=== PATIENT | male | born 1950 | race Caucasian/White ===

== ENCOUNTER 2017-07-30 03:57 | Emergency (ER) | payer MEDICARE, SELFPAY ==
[~2017-07-30] VITALS: Ht 170.2 cm; Wt 104.3 kg
[~2017-07-30 03:57] MED LIST: ACET325 PO; AMARYL; AMLO10 PO; AMOCLA875 PO; ASPI81CH PO; ASPI81EC; ATOR40TA PO; Augmentin 875-1 EACH; BYETTA; CEPH500 PO; CIPR500 PO; CLOP75 PO; Cilostazol50 MG PO; GLIP5 PO; GLUCOPHAGE; HYDACE5 PO; HYDR1TAB94 PO; INS70/30I; INS70/30I SC; INS70/30PN SC; INSR10I SC; LEVO750 PO; LISHYD1012 PO; LISI10 PO; LISI20 PO; LOTREL; METF500 PO; METF500C; METF500C PO; OXYACE5T PO; PANT40 PO; SACC250C PO; SULTRIDS; SULTRIDS PO; ZESTORETIC 20-251 EA PO; [UNRECOGNIZED DRUG - REMARK]
[2017-07-30 04:45] LABS: BASOPHILS ABSOLUTE AUTO 0.04 K/mm3 (0.00-0.23); BASOPHILS PERCENT AUTO 0 % (0-2); EOSINOPHILS ABSOLUTE AUTO 0.03 K/mm3 (0.00-0.68); EOSINOPHILS PERCENT AUTO 0 % (0-6); Hematocrit 26.4 % (37.0-53.0); Hemoglobin 8.7 g/dL (13.5-17.5); IMMATURE GRAN ABSOLUTE AUTO 0.04 K/mm3 (0.00-0.10); IMMATURE GRAN PERCENT AUTO 0 % (0-1); LYMPHOCYTES PERCENT AUTO 9 % (21-46); MONOCYTES ABSOLUTE AUTO 0.97 K/mm3 (0.16-1.47); MONOCYTES PERCENT AUTO 7 % (4-13); Mean Corpuscular HGB 29.4 pg (26.0-34.0); Mean Corpuscular Volume 89 fL (80-100); Mean Platelet Volume 9.1 fL (9.1-12.4); NEUTROPHILS ABSOLUTE AUTO 12.59 K/mm3 (1.96-9.15); NEUTROPHILS PERCENT AUTO 84 % (41-73); Platelet Count 469 K/mm3 (150-400); RDW Coefficient Variation 14.4 % (11.7-14.2); Red Blood Cell Count 2.96 M/mm3 (4.30-5.90); White Blood Cell Count 14.97 K/mm3 (4.00-11.30)
[2017-07-30 04:56] LABS: Alanine Aminotransfer (ALT/SGP 18 U/L (12-78); Albumin, Blood 2.8 g/dL (3.4-5.0); Albumin/Globulin Ratio 0.6 (0.8-1.8); Alk Phos 56 U/L (50-136); Anion Gap 8 mmol/L (6-16); Aspartate Aminotrans (AST/SGOT 14 U/L (12-37); Bilirubin, Total 0.7 mg/dL (0.1-1.0); Blood Urea Nitrogen 23 mg/dL (8-24); Bun/Creatinine Ratio 18.5 (12.0-20.0); CO2, Blood 26 mmol/L (21-32); Chloride, Blood 99 mmol/L (98-108); Creatinine, Blood 1.24 mg/dL (0.60-1.20); Globulin, Blood 4.6 g/dL (2.2-4.0); Glomerular Filtration Rate >60 (60-); Glucose, Blood 133 mg/dL (70-99); Sodium, Blood 133 mmol/L (136-145); Total Protein, Blood 7.4 g/dL (6.4-8.2)
[2017-07-30 07:16] LABS: Influenza A Negative (NEGATIVE); Influenza B Negative (NEGATIVE)
[2018-01-26] MEDS ORDERED: ASCO500 PO (12:54)
[2018-01-26] MEDS ORDERED: HYDR10 PO (12:55)
[2018-01-26] MEDS ORDERED: Ferrous Sulfat325 M2 PO (12:55)
[2018-01-26] MEDS ORDERED: INSULANPEN SC (12:56)
[2018-01-26] MEDS ORDERED: Humalog100 UNIT/3 (12:57)
[2018-01-26] MEDS ORDERED: LINE600 PO (12:57)
== END 2017-07-30 10:13 ==
LOC: ER 03:57
PROVIDERS: Emergency Medicine
DX: K92.2 Gastrointestinal hemorrhage, unspecified (principal); E11.9 Type 2 diabetes mellitus without complications; Z79.02 Long term (current) use of antithrombotics/antiplatelets; Z79.899 Other long term (current) drug therapy; Z79.4 Long term (current) use of insulin; Z79.82 Long term (current) use of aspirin
CPT/HCPCS: 36415; 71020; 80053; 81000; 82272; 85025; 86850; 86900; 86901; 87804; 93005; 93010; 96361; 96374; 99285; C9113; J7030

== ENCOUNTER 2017-08-23 10:43 | Inpatient (IN) | payer MEDICARE, SELFPAY ==
[~2017-08-23] VITALS: Ht 167.6 cm; Wt 114.9 kg
[2017-08-23 11:51] LABS: BASOPHILS ABSOLUTE AUTO 0.04 K/mm3 (0.00-0.23); BASOPHILS PERCENT AUTO 0 % (0-2); EOSINOPHILS ABSOLUTE AUTO 0.09 K/mm3 (0.00-0.68); EOSINOPHILS PERCENT AUTO 1 % (0-6); Hematocrit 24.3 % (37.0-53.0); Hemoglobin 7.5 g/dL (13.5-17.5); IMMATURE GRAN ABSOLUTE AUTO 0.06 K/mm3 (0.00-0.10); IMMATURE GRAN PERCENT AUTO 1 % (0-1); LYMPHOCYTES ABSOLUTE AUTO 0.65 K/mm3 (0.84-5.20); LYMPHOCYTES PERCENT AUTO 7 % (21-46); MONOCYTES ABSOLUTE AUTO 0.59 K/mm3 (0.16-1.47); MONOCYTES PERCENT AUTO 7 % (4-13); Mean Corpuscular HGB 27.9 pg (26.0-34.0); Mean Corpuscular HGB Conc 30.9 g/dL (31.5-36.5); Mean Corpuscular Volume 90 fL (80-100); NEUTROPHILS ABSOLUTE AUTO 7.53 K/mm3 (1.96-9.15); NEUTROPHILS PERCENT AUTO 84 % (41-73); Platelet Count 291 K/mm3 (150-400); RDW Coefficient Variation 17.3 % (11.7-14.2); RDW Standard Deviation 57.4 fL (35.1-46.3); Red Blood Cell Count 2.69 M/mm3 (4.30-5.90); White Blood Cell Count 8.96 K/mm3 (4.00-11.30)
[2017-08-23 12:05] LABS: International Normalized Ratio 1.23; Prothrombin Time Results 12.9 Sec (9.7-11.5)
[2017-08-23 12:11] LABS: Albumin, Blood 1.9 g/dL (3.4-5.0); Albumin/Globulin Ratio 0.4 (0.8-1.8); Bilirubin, Total 0.4 mg/dL (0.1-1.0); Bun/Creatinine Ratio 27.9 (12.0-20.0); Calcium, Blood 7.8 mg/dL (8.5-10.1); Creatinine, Blood 2.15 mg/dL (0.60-1.20); Potassium, Blood 3.9 mmol/L (3.5-5.5); Total Protein, Blood 6.9 g/dL (6.4-8.2); Troponin I 0.344 ng/mL (0.000-0.040)
[2017-08-23] MEDS ORDERED: TAMS.4ER PO (12:30)
[2017-08-23] MEDS ORDERED: FINA5 PO (12:30)
[2017-08-23] MEDS ORDERED: METR500 PO (12:32)
[2017-08-24 05:40] LABS: BASOPHILS ABSOLUTE AUTO 0.04 K/mm3 (0.00-0.23); BASOPHILS PERCENT AUTO 1 % (0-2); EOSINOPHILS ABSOLUTE AUTO 0.04 K/mm3 (0.00-0.68); EOSINOPHILS PERCENT AUTO 1 % (0-6); Hemoglobin 12.8 g/dL (13.5-17.5); IMMATURE GRAN ABSOLUTE AUTO 0.03 K/mm3 (0.00-0.10); IMMATURE GRAN PERCENT AUTO 1 % (0-1); LYMPHOCYTES ABSOLUTE AUTO 0.39 K/mm3 (0.84-5.20); LYMPHOCYTES PERCENT AUTO 8 % (21-46); MONOCYTES ABSOLUTE AUTO 0.31 K/mm3 (0.16-1.47); MONOCYTES PERCENT AUTO 7 % (4-13); Mean Corpuscular HGB 28.1 pg (26.0-34.0); Mean Corpuscular Volume 88 fL (80-100); Mean Platelet Volume 8.7 fL (9.1-12.4); NEUTROPHILS ABSOLUTE AUTO 3.88 K/mm3 (1.96-9.15); NEUTROPHILS PERCENT AUTO 83 % (41-73); Platelet Count 198 K/mm3 (150-400); RDW Coefficient Variation 16.9 % (11.7-14.2); RDW Standard Deviation 54.4 fL (35.1-46.3); Red Blood Cell Count 4.55 M/mm3 (4.30-5.90); White Blood Cell Count 4.69 K/mm3 (4.00-11.30)
[2017-08-24 06:06] LABS: Albumin, Blood 1.8 g/dL (3.4-5.0); Anion Gap 9 mmol/L (6-16); Blood Urea Nitrogen 56 mg/dL (8-24); Bun/Creatinine Ratio 33.7 (12.0-20.0); CO2, Blood 22 mmol/L (21-32); Calcium, Blood 7.3 mg/dL (8.5-10.1); Chloride, Blood 109 mmol/L (98-108); Creatinine, Blood 1.66 mg/dL (0.60-1.20); Glomerular Filtration Rate 44 (60-); Glucose, Blood 135 mg/dL (70-99); Phosphorus, Blood 2.6 mg/dL (2.5-4.9); Potassium, Blood 3.7 mmol/L (3.5-5.5); Sodium, Blood 140 mmol/L (136-145); Troponin I 0.242 ng/mL (0.000-0.040)
[2017-08-24 15:02] LABS: Source, Urine Clean Catch
[2017-08-24 15:07] LABS: Appearance, Urine Cloudy (Clear); Bilirubin, Urine Neg (Neg); Blood, Urine 4+ (Neg); Color, Urine Amber (P-Yellow); Glucose Qualitative, Urine 2+ (Neg); Ketones, Urine Neg (Neg); Leukocyte Esterase, Urine 1+ (Neg); Nitrite, Urine Neg (Neg); Protein, Urine 1+ (Neg); Urobilinogen, Urine NORM (Normal)
[2017-08-24 15:19] LABS: Amorphous Mod (0-Heavy); Bacteria Few /hpf; Red Blood Cells, Urine 0-2 /hpf (0-2); Squamous Epithelial Cells Not Seen /hpf (Few); White Blood Cells, Urine 0-2 /hpf (0-5)
[2017-08-25 04:57] LABS: BASOPHILS ABSOLUTE AUTO 0.06 K/mm3 (0.00-0.23); BASOPHILS PERCENT AUTO 1 % (0-2); EOSINOPHILS ABSOLUTE AUTO 0.13 K/mm3 (0.00-0.68); EOSINOPHILS PERCENT AUTO 1 % (0-6); Hematocrit 21.1 % (37.0-53.0); Hemoglobin 6.6 g/dL (13.5-17.5); IMMATURE GRAN ABSOLUTE AUTO 0.05 K/mm3 (0.00-0.10); IMMATURE GRAN PERCENT AUTO 1 % (0-1); LYMPHOCYTES ABSOLUTE AUTO 0.91 K/mm3 (0.84-5.20); LYMPHOCYTES PERCENT AUTO 9 % (21-46); MONOCYTES ABSOLUTE AUTO 0.73 K/mm3 (0.16-1.47); MONOCYTES PERCENT AUTO 8 % (4-13); Mean Corpuscular HGB 27.8 pg (26.0-34.0); Mean Corpuscular HGB Conc 31.3 g/dL (31.5-36.5); Mean Corpuscular Volume 89 fL (80-100); Mean Platelet Volume 9.1 fL (9.1-12.4); NEUTROPHILS ABSOLUTE AUTO 7.87 K/mm3 (1.96-9.15); NEUTROPHILS PERCENT AUTO 81 % (41-73); Platelet Count 278 K/mm3 (150-400); RDW Coefficient Variation 17.1 % (11.7-14.2); RDW Standard Deviation 55.4 fL (35.1-46.3); Red Blood Cell Count 2.37 M/mm3 (4.30-5.90); White Blood Cell Count 9.75 K/mm3 (4.00-11.30)
[2017-08-25 05:21] LABS: Magnesium, Blood 2.1 mg/dL (1.6-2.4)
[2017-08-25 05:29] LABS: Bun/Creatinine Ratio 32.5 (12.0-20.0); Calcium, Blood 7.4 mg/dL (8.5-10.1); Creatinine, Blood 1.94 mg/dL (0.60-1.20); Potassium, Blood 3.9 mmol/L (3.5-5.5)
[2017-08-25 09:43] LABS: Vancomycin, Trough 50.9 ug/mL (5.0-10.0)
[2017-08-25 10:32] LABS: Hematocrit 22.7 % (37.0-53.0); Hemoglobin 7.1 g/dL (13.5-17.5)
[2017-08-25 10:39] LABS: Vancomycin, Trough 54.1 ug/mL (5.0-10.0)
[2017-08-25 20:27] LABS: Hematocrit 23.1 % (37.0-53.0); Hemoglobin 7.4 g/dL (13.5-17.5)
[2017-08-26 06:35] LABS: BASOPHILS ABSOLUTE AUTO 0.04 K/mm3 (0.00-0.23); BASOPHILS PERCENT AUTO 1 % (0-2); EOSINOPHILS ABSOLUTE AUTO 0.24 K/mm3 (0.00-0.68); EOSINOPHILS PERCENT AUTO 3 % (0-6); Hematocrit 25.4 % (37.0-53.0); Hemoglobin 8.2 g/dL (13.5-17.5); IMMATURE GRAN ABSOLUTE AUTO 0.05 K/mm3 (0.00-0.10); IMMATURE GRAN PERCENT AUTO 1 % (0-1); LYMPHOCYTES ABSOLUTE AUTO 0.78 K/mm3 (0.84-5.20); LYMPHOCYTES PERCENT AUTO 9 % (21-46); MONOCYTES ABSOLUTE AUTO 0.58 K/mm3 (0.16-1.47); MONOCYTES PERCENT AUTO 7 % (4-13); Mean Corpuscular HGB 28.5 pg (26.0-34.0); Mean Corpuscular HGB Conc 32.3 g/dL (31.5-36.5); Mean Corpuscular Volume 88 fL (80-100); NEUTROPHILS PERCENT AUTO 81 % (41-73); Platelet Count 289 K/mm3 (150-400); RDW Coefficient Variation 17.1 % (11.7-14.2); RDW Standard Deviation 54.9 fL (35.1-46.3); Red Blood Cell Count 2.88 M/mm3 (4.30-5.90); White Blood Cell Count 8.79 K/mm3 (4.00-11.30)
[2017-08-26 06:59] LABS: Anion Gap 8 mmol/L (6-16); Blood Urea Nitrogen 66 mg/dL (8-24); Bun/Creatinine Ratio 38.6 (12.0-20.0); CO2, Blood 23 mmol/L (21-32); Calcium, Blood 7.6 mg/dL (8.5-10.1); Chloride, Blood 108 mmol/L (98-108); Creatinine, Blood 1.71 mg/dL (0.60-1.20); Glomerular Filtration Rate 43 (60-); Glucose, Blood 198 mg/dL (70-99); Magnesium, Blood 2.1 mg/dL (1.6-2.4); Potassium, Blood 3.9 mmol/L (3.5-5.5); Sodium, Blood 139 mmol/L (136-145); Vancomycin, Random 39.4 ug/mL
[2017-08-26 16:38] LABS: Stool Occult Blood Guaiac 1 Neg (Neg)
[2017-08-26 18:36] LABS: Source, Urine Catheter
[2017-08-26 18:45] LABS: Bilirubin, Urine Neg (Neg); Blood, Urine 3+ (Neg); Glucose Qualitative, Urine 2+ (Neg); Ketones, Urine Neg (Neg); Leukocyte Esterase, Urine 1+ (Neg); Nitrite, Urine Neg (Neg); Protein, Urine 1+ (Neg); Specific Gravity, Urine 1.015 (1.003-1.022); Urobilinogen, Urine NORM (Normal)
[2017-08-26 18:52] LABS: Appearance, Urine Clear (Clear); Color, Urine Yellow (P-Yellow)
[2017-08-26 18:53] LABS: Amorphous Light (0-Heavy); Bacteria Rare /hpf; Squamous Epithelial Cells Rare /hpf (Few); White Blood Cells, Urine 0-2 /hpf (0-5)
[2017-08-27 05:45] LABS: BASOPHILS ABSOLUTE AUTO 0.05 K/mm3 (0.00-0.23); BASOPHILS PERCENT AUTO 1 % (0-2); EOSINOPHILS ABSOLUTE AUTO 0.27 K/mm3 (0.00-0.68); EOSINOPHILS PERCENT AUTO 3 % (0-6); Hematocrit 26.6 % (37.0-53.0); Hemoglobin 8.4 g/dL (13.5-17.5); IMMATURE GRAN ABSOLUTE AUTO 0.04 K/mm3 (0.00-0.10); IMMATURE GRAN PERCENT AUTO 1 % (0-1); LYMPHOCYTES ABSOLUTE AUTO 0.91 K/mm3 (0.84-5.20); LYMPHOCYTES PERCENT AUTO 11 % (21-46); MONOCYTES ABSOLUTE AUTO 0.53 K/mm3 (0.16-1.47); MONOCYTES PERCENT AUTO 7 % (4-13); Mean Corpuscular HGB 27.8 pg (26.0-34.0); Mean Corpuscular HGB Conc 31.6 g/dL (31.5-36.5); Mean Corpuscular Volume 88 fL (80-100); Mean Platelet Volume 9.1 fL (9.1-12.4); NEUTROPHILS ABSOLUTE AUTO 6.35 K/mm3 (1.96-9.15); NEUTROPHILS PERCENT AUTO 78 % (41-73); Platelet Count 365 K/mm3 (150-400); RDW Coefficient Variation 17.1 % (11.7-14.2); RDW Standard Deviation 54.8 fL (35.1-46.3); Red Blood Cell Count 3.02 M/mm3 (4.30-5.90); White Blood Cell Count 8.15 K/mm3 (4.00-11.30)
[2017-08-27 06:18] LABS: Anion Gap 8 mmol/L (6-16); Blood Urea Nitrogen 54 mg/dL (8-24); Bun/Creatinine Ratio 40.6 (12.0-20.0); CO2, Blood 25 mmol/L (21-32); Calcium, Blood 7.9 mg/dL (8.5-10.1); Chloride, Blood 111 mmol/L (98-108); Creatinine, Blood 1.33 mg/dL (0.60-1.20); Glomerular Filtration Rate 57 (60-); Glucose, Blood 114 mg/dL (70-99); Magnesium, Blood 1.9 mg/dL (1.6-2.4); Potassium, Blood 4.2 mmol/L (3.5-5.5); Sodium, Blood 144 mmol/L (136-145); Vancomycin, Random 28.5 ug/mL
[2017-08-28 04:38] LABS: BASOPHILS ABSOLUTE AUTO 0.07 K/mm3 (0.00-0.23); BASOPHILS PERCENT AUTO 1 % (0-2); EOSINOPHILS ABSOLUTE AUTO 0.21 K/mm3 (0.00-0.68); EOSINOPHILS PERCENT AUTO 3 % (0-6); Hematocrit 28.1 % (37.0-53.0); Hemoglobin 8.7 g/dL (13.5-17.5); IMMATURE GRAN ABSOLUTE AUTO 0.05 K/mm3 (0.00-0.10); IMMATURE GRAN PERCENT AUTO 1 % (0-1); LYMPHOCYTES ABSOLUTE AUTO 1.13 K/mm3 (0.84-5.20); LYMPHOCYTES PERCENT AUTO 15 % (21-46); MONOCYTES PERCENT AUTO 8 % (4-13); Mean Corpuscular HGB 27.8 pg (26.0-34.0); Mean Corpuscular Volume 90 fL (80-100); Mean Platelet Volume 8.7 fL (9.1-12.4); NEUTROPHILS ABSOLUTE AUTO 5.57 K/mm3 (1.96-9.15); NEUTROPHILS PERCENT AUTO 73 % (41-73); Platelet Count 373 K/mm3 (150-400); RDW Coefficient Variation 17.1 % (11.7-14.2); RDW Standard Deviation 55.4 fL (35.1-46.3); Red Blood Cell Count 3.13 M/mm3 (4.30-5.90); White Blood Cell Count 7.63 K/mm3 (4.00-11.30)
[2017-08-28 04:57] LABS: Albumin, Blood 1.6 g/dL (3.4-5.0); Anion Gap 7 mmol/L (6-16); Blood Urea Nitrogen 49 mg/dL (8-24); Bun/Creatinine Ratio 39.8 (12.0-20.0); CO2, Blood 26 mmol/L (21-32); Calcium, Blood 7.8 mg/dL (8.5-10.1); Chloride, Blood 108 mmol/L (98-108); Creatinine, Blood 1.23 mg/dL (0.60-1.20); Glomerular Filtration Rate >60 (60-); Glucose, Blood 244 mg/dL (70-99); Magnesium, Blood 1.7 mg/dL (1.6-2.4); Potassium, Blood 4.6 mmol/L (3.5-5.5); Sodium, Blood 141 mmol/L (136-145); Vancomycin, Random 17.7 ug/mL
[2017-08-29 04:59] LABS: BASOPHILS ABSOLUTE AUTO 0.07 K/mm3 (0.00-0.23); BASOPHILS PERCENT AUTO 1 % (0-2); EOSINOPHILS ABSOLUTE AUTO 0.24 K/mm3 (0.00-0.68); EOSINOPHILS PERCENT AUTO 3 % (0-6); Hematocrit 28.2 % (37.0-53.0); Hemoglobin 8.8 g/dL (13.5-17.5); IMMATURE GRAN ABSOLUTE AUTO 0.05 K/mm3 (0.00-0.10); IMMATURE GRAN PERCENT AUTO 1 % (0-1); LYMPHOCYTES ABSOLUTE AUTO 1.07 K/mm3 (0.84-5.20); LYMPHOCYTES PERCENT AUTO 12 % (21-46); MONOCYTES ABSOLUTE AUTO 0.63 K/mm3 (0.16-1.47); MONOCYTES PERCENT AUTO 7 % (4-13); Mean Corpuscular HGB Conc 31.2 g/dL (31.5-36.5); Mean Corpuscular Volume 90 fL (80-100); Mean Platelet Volume 8.4 fL (9.1-12.4); NEUTROPHILS ABSOLUTE AUTO 6.71 K/mm3 (1.96-9.15); NEUTROPHILS PERCENT AUTO 77 % (41-73); Platelet Count 356 K/mm3 (150-400); RDW Coefficient Variation 17.1 % (11.7-14.2); Red Blood Cell Count 3.14 M/mm3 (4.30-5.90); White Blood Cell Count 8.77 K/mm3 (4.00-11.30)
[2017-08-29 05:20] LABS: Anion Gap 5 mmol/L (6-16); Blood Urea Nitrogen 42 mg/dL (8-24); Bun/Creatinine Ratio 38.5 (12.0-20.0); CO2, Blood 30 mmol/L (21-32); Chloride, Blood 108 mmol/L (98-108); Creatinine, Blood 1.09 mg/dL (0.60-1.20); Glomerular Filtration Rate >60 (60-); Glucose, Blood 167 mg/dL (70-99); Magnesium, Blood 1.6 mg/dL (1.6-2.4); Potassium, Blood 4.3 mmol/L (3.5-5.5); Sodium, Blood 143 mmol/L (136-145); Vancomycin, Random 18.7 ug/mL
[2017-08-30 05:18] LABS: BASOPHILS ABSOLUTE AUTO 0.07 K/mm3 (0.00-0.23); BASOPHILS PERCENT AUTO 1 % (0-2); EOSINOPHILS PERCENT AUTO 4 % (0-6); Hematocrit 27.4 % (37.0-53.0); Hemoglobin 8.4 g/dL (13.5-17.5); IMMATURE GRAN ABSOLUTE AUTO 0.06 K/mm3 (0.00-0.10); IMMATURE GRAN PERCENT AUTO 1 % (0-1); LYMPHOCYTES ABSOLUTE AUTO 1.13 K/mm3 (0.84-5.20); LYMPHOCYTES PERCENT AUTO 13 % (21-46); MONOCYTES ABSOLUTE AUTO 0.51 K/mm3 (0.16-1.47); MONOCYTES PERCENT AUTO 6 % (4-13); Mean Corpuscular HGB 27.8 pg (26.0-34.0); Mean Corpuscular HGB Conc 30.7 g/dL (31.5-36.5); Mean Corpuscular Volume 91 fL (80-100); Mean Platelet Volume 8.6 fL (9.1-12.4); NEUTROPHILS ABSOLUTE AUTO 6.52 K/mm3 (1.96-9.15); NEUTROPHILS PERCENT AUTO 76 % (41-73); Platelet Count 396 K/mm3 (150-400); RDW Coefficient Variation 16.7 % (11.7-14.2); RDW Standard Deviation 55.8 fL (35.1-46.3); Red Blood Cell Count 3.02 M/mm3 (4.30-5.90); White Blood Cell Count 8.59 K/mm3 (4.00-11.30)
[2017-08-30 05:39] LABS: Anion Gap 7 mmol/L (6-16); Blood Urea Nitrogen 34 mg/dL (8-24); Bun/Creatinine Ratio 35.2 (12.0-20.0); CO2, Blood 30 mmol/L (21-32); Calcium, Blood 7.9 mg/dL (8.5-10.1); Chloride, Blood 107 mmol/L (98-108); Creatinine, Blood 0.97 mg/dL (0.60-1.20); Glomerular Filtration Rate >60 (60-); Glucose, Blood 111 mg/dL (70-99); Potassium, Blood 3.8 mmol/L (3.5-5.5); Sodium, Blood 144 mmol/L (136-145)
[2017-08-30 09:06] LABS: Vancomycin, Trough 17.7 ug/mL (5.0-10.0)
[2017-08-31 06:08] LABS: BASOPHILS ABSOLUTE AUTO 0.07 K/mm3 (0.00-0.23); BASOPHILS PERCENT AUTO 1 % (0-2); EOSINOPHILS ABSOLUTE AUTO 0.23 K/mm3 (0.00-0.68); EOSINOPHILS PERCENT AUTO 3 % (0-6); Hematocrit 28.8 % (37.0-53.0); Hemoglobin 9.2 g/dL (13.5-17.5); IMMATURE GRAN ABSOLUTE AUTO 0.05 K/mm3 (0.00-0.10); IMMATURE GRAN PERCENT AUTO 1 % (0-1); LYMPHOCYTES ABSOLUTE AUTO 1.21 K/mm3 (0.84-5.20); LYMPHOCYTES PERCENT AUTO 13 % (21-46); MONOCYTES ABSOLUTE AUTO 0.58 K/mm3 (0.16-1.47); MONOCYTES PERCENT AUTO 6 % (4-13); Mean Corpuscular HGB Conc 31.9 g/dL (31.5-36.5); NEUTROPHILS ABSOLUTE AUTO 6.94 K/mm3 (1.96-9.15); NEUTROPHILS PERCENT AUTO 76 % (41-73); Platelet Count 453 K/mm3 (150-400); RDW Coefficient Variation 16.5 % (11.7-14.2); RDW Standard Deviation 52.7 fL (35.1-46.3); Red Blood Cell Count 3.28 M/mm3 (4.30-5.90); White Blood Cell Count 9.08 K/mm3 (4.00-11.30)
[2017-08-31 06:09] LABS: Mean Corpuscular Volume 88 fL (80-100)
[2017-08-31 06:22] LABS: Anion Gap 8 mmol/L (6-16); Blood Urea Nitrogen 31 mg/dL (8-24); Bun/Creatinine Ratio 29.2 (12.0-20.0); CO2, Blood 29 mmol/L (21-32); Chloride, Blood 105 mmol/L (98-108); Creatinine, Blood 1.06 mg/dL (0.60-1.20); Glomerular Filtration Rate >60 (60-); Glucose, Blood 62 mg/dL (70-99); Potassium, Blood 3.4 mmol/L (3.5-5.5); Sodium, Blood 142 mmol/L (136-145)
[2017-09-01 08:53] LABS: Vancomycin, Trough 20.5 ug/mL (5.0-10.0)
[2017-09-03 13:05] LABS: Creatinine, Blood 0.86 mg/dL (0.60-1.20); Vancomycin, Trough 16.7 ug/mL (5.0-10.0)
[2017-09-06] MEDS ORDERED: ACET325 PO (14:15)
[2017-09-06] MEDS ORDERED: JUVEN PACKET1 EACH PO (14:18)
[2017-09-06] MEDS ORDERED: DOCU100 PO (14:19)
[2017-09-06] MEDS ORDERED: FAMO20 PO (14:24)
[2017-09-06] MEDS ORDERED: Novolog Fl100 UNIT/1 SC (14:27)
[2017-09-06] MEDS ORDERED: LOSA50 PO (14:30)
[2017-09-06] MEDS ORDERED: Milk Of Ma400 MG/5 M PO (14:32)
[2017-09-06] MEDS ORDERED: MUPIROCIN1 GM TOP (14:33)
[2017-09-06] MEDS ORDERED: METO50 PO (14:34)
[2017-09-06] MEDS ORDERED: Pedi-Dri 100,0060 GM TOP (14:35)
[2017-09-06] MEDS ORDERED: SACC250C PO (14:36)
[2017-09-06] MEDS ORDERED: Ceftriaxon2 GM/50 ML IV (14:37)
[2017-09-06] MEDS ORDERED: VANCOMYCIN1.25 GM/21 IV (14:39)
[2018-01-26] MEDS ORDERED: ASCO500 PO (12:54)
[2018-01-26] MEDS ORDERED: Ferrous Sulfat325 M2 PO (12:55)
[2018-01-26] MEDS ORDERED: HYDR10 PO (12:55)
[2018-01-26] MEDS ORDERED: INSULANPEN SC (12:56)
[2018-01-26] MEDS ORDERED: LINE600 PO (12:57)
[2018-01-26] MEDS ORDERED: Humalog100 UNIT/3 (12:57)
== END 2017-09-06 11:41 | DRG 871 ==
LOC: ER 10:43 → MEDS 13:42 → ENPENDDIS 09-06 09:00 → MEDS 09-06 11:41
PROVIDERS: Hospitalist; Internal Medicine; Pharmacist; Physician Assistant
DX: A41.9 Sepsis, unspecified organism (principal); J69.0 Pneumonitis due to inhalation of food and vomit; G06.1 Intraspinal abscess and granuloma; L89.159 Pressure ulcer of sacral region, unspecified stage; N17.9 Acute kidney failure, unspecified; Z68.41 Body mass index [BMI] 40.0-44.9, adult; E11.42 Type 2 diabetes mellitus with diabetic polyneuropathy; K92.2 Gastrointestinal hemorrhage, unspecified; J98.11 Atelectasis; M86.8X7 Other osteomyelitis, ankle and foot; E11.621 Type 2 diabetes mellitus with foot ulcer; R33.9 Retention of urine, unspecified; D63.8 Anemia in other chronic diseases classified elsewhere; I10 Essential (primary) hypertension; E66.9 Obesity, unspecified; E11.51 Type 2 diabetes mellitus with diabetic peripheral angiopathy without gangrene; R06.83 Snoring; E11.69 Type 2 diabetes mellitus with other specified complication; B95.2 Enterococcus as the cause of diseases classified elsewhere; B96.20 Unspecified Escherichia coli [E. coli] as the cause of diseases classified elsewhere; Z89.432 Acquired absence of left foot; Z95.820 Peripheral vascular angioplasty status with implants and grafts; Z89.411 Acquired absence of right great toe; Z79.2 Long term (current) use of antibiotics; Z79.02 Long term (current) use of antithrombotics/antiplatelets; Z79.82 Long term (current) use of aspirin; Z79.4 Long term (current) use of insulin; Z79.899 Other long term (current) drug therapy
CPT/HCPCS: 36415; 36430; 51702; 71046; 71250; 72158; 73590; 73630; 80048; 80053; 80069; 80202; 81001; 82270; 82565; 82947; 83605; 83735; 83880; 84145; 84484; 85007; 85014; 85018; 85025; 85027; 85610; 85651; 86140; 86850; 86870; 86880; 86900; 86901; 86902; 86922; 87040; 87070; 87077; 87086; 87205; 87449; 87493; 92610; 93005; 93010; 93306; 94667; 94760; 94762; 96360; 97110; 97163; 97166; 97530; 99285; A9577; G8978; G8979; G8987; G8988; G8996; G8997; G8998; J0696; J1815; J1940; J2543; J2997; J3370; J7030; J7050; J7120; P9016

== ENCOUNTER → 2017-09-07 | Outpatient (CLI) | payer MEDICARE, SELFPAY ==
[~2017-09-07] MED LIST changes: +ASCO500 PO; +Bactrim Ds Tab1 EACH PO; +Ceftriaxon2 GM/50 ML IV; +DOCU100 PO; +FAMO20 PO; +FINA5 PO; +Ferrous Sulfat325 M2 PO; +HYDR10 PO; +Humalog100 UNIT/3; +INSULANPEN SC; +JUVEN PACKET1 EACH PO; +LINE600 PO; +LOSA50 PO; +METO50 PO; +METR500 PO; +MUPIROCIN1 GM TOP; +Milk Of Ma400 MG/5 M PO; +Novolog Fl100 UNIT/1 SC; +Omeprazole20 M1 PO; +Pedi-Dri 100,0060 GM TOP; +TAMS.4ER PO; +VANCOMYCIN1.25 GM/21 IV
[2017-09-07 12:38] LABS: Anion Gap 9 mmol/L (6-16); Blood Urea Nitrogen 21 mg/dL (8-24); CO2, Blood 29 mmol/L (21-32); Calcium, Blood 8.5 mg/dL (8.5-10.1); Chloride, Blood 101 mmol/L (98-108); Creatinine, Blood 0.96 mg/dL (0.60-1.20); Glomerular Filtration Rate >60 (60-); Glucose, Blood 166 mg/dL (70-99); Potassium, Blood 3.9 mmol/L (3.5-5.5); Sodium, Blood 139 mmol/L (136-145); Vancomycin, Random 11.1 ug/mL
== END | disposition home or self-care (01) ==
LOC: LAB RH 12:12
PROVIDERS: Family Medicine
DX: R78.81 Bacteremia (principal)
CPT/HCPCS: 80048; 80202

== ENCOUNTER → 2017-09-10 | Outpatient (CLI) | payer MEDICARE, SELFPAY ==
[2017-09-10 12:28] LABS: Anion Gap 8 mmol/L (6-16); Blood Urea Nitrogen 14 mg/dL (8-24); Bun/Creatinine Ratio 16.4 (12.0-20.0); CO2, Blood 29 mmol/L (21-32); Chloride, Blood 103 mmol/L (98-108); Creatinine, Blood 0.85 mg/dL (0.60-1.20); Glomerular Filtration Rate >60 (60-); Glucose, Blood 110 mg/dL (70-99); Potassium, Blood 3.8 mmol/L (3.5-5.5); Sodium, Blood 140 mmol/L (136-145)
[2017-09-10 12:29] LABS: Vancomycin, Trough 13.3 ug/mL (5.0-10.0)
== END | disposition home or self-care (01) ==
LOC: LAB RH 12:03
PROVIDERS: Family Medicine
DX: R78.81 Bacteremia (principal)
CPT/HCPCS: 80048; 80202

== ENCOUNTER → 2017-09-14 | Outpatient (CLI) | payer MEDICARE, SELFPAY ==
[2017-09-14 14:19] LABS: Anion Gap 8 mmol/L (6-16); Blood Urea Nitrogen 11 mg/dL (8-24); Bun/Creatinine Ratio 14.3 (12.0-20.0); CO2, Blood 29 mmol/L (21-32); Calcium, Blood 8.1 mg/dL (8.5-10.1); Chloride, Blood 104 mmol/L (98-108); Creatinine, Blood 0.77 mg/dL (0.60-1.20); Glomerular Filtration Rate >60 (60-); Glucose, Blood 36 mg/dL (70-99); Potassium, Blood 3.1 mmol/L (3.5-5.5); Sodium, Blood 141 mmol/L (136-145); Vancomycin, Trough 18.7 ug/mL (5.0-10.0)
== END | disposition home or self-care (01) ==
LOC: LAB RH 12:19
PROVIDERS: Family Medicine
DX: R78.81 Bacteremia (principal)
CPT/HCPCS: 80048; 80202

== ENCOUNTER 2017-11-27 08:18 | Inpatient (IN) | payer MEDICARE, OTHER ==
[~2017-11-27] VITALS: Ht 177.8 cm; Wt 102.9 kg
[~2017-11-27 08:18] MED LIST changes: -ASCO500 PO; -Bactrim Ds Tab1 EACH PO; -Ferrous Sulfat325 M2 PO; -HYDR10 PO; -Humalog100 UNIT/3; -INSULANPEN SC; -LINE600 PO; -Omeprazole20 M1 PO
[2017-11-27 08:47] LABS: BASOPHILS ABSOLUTE AUTO 0.04 K/mm3 (0.00-0.23); BASOPHILS PERCENT AUTO 0 % (0-2); EOSINOPHILS ABSOLUTE AUTO 0.23 K/mm3 (0.00-0.68); EOSINOPHILS PERCENT AUTO 2 % (0-6); Hematocrit 24.6 % (37.0-53.0); Hemoglobin 8.3 g/dL (13.5-17.5); IMMATURE GRAN ABSOLUTE AUTO 0.04 K/mm3 (0.00-0.10); IMMATURE GRAN PERCENT AUTO 0 % (0-1); LYMPHOCYTES ABSOLUTE AUTO 0.95 K/mm3 (0.84-5.20); LYMPHOCYTES PERCENT AUTO 9 % (21-46); MONOCYTES ABSOLUTE AUTO 0.61 K/mm3 (0.16-1.47); MONOCYTES PERCENT AUTO 6 % (4-13); Mean Corpuscular HGB 28.2 pg (26.0-34.0); Mean Corpuscular HGB Conc 33.7 g/dL (31.5-36.5); Mean Corpuscular Volume 84 fL (80-100); Mean Platelet Volume 8.9 fL (9.1-12.4); NEUTROPHILS PERCENT AUTO 83 % (41-73); Platelet Count 313 K/mm3 (150-400); RDW Coefficient Variation 14.6 % (11.7-14.2); RDW Standard Deviation 44.5 fL (35.1-46.3); Red Blood Cell Count 2.94 M/mm3 (4.30-5.90); White Blood Cell Count 10.87 K/mm3 (4.00-11.30)
[2017-11-27 09:18] LABS: Alanine Aminotransfer (ALT/SGP 13 U/L (12-78); Albumin/Globulin Ratio 0.4 (0.8-1.8); Alk Phos 57 U/L (50-136); Anion Gap 9 mmol/L (6-16); Aspartate Aminotrans (AST/SGOT 10 U/L (12-37); Bilirubin, Total 0.4 mg/dL (0.1-1.0); Blood Urea Nitrogen 23 mg/dL (8-24); Bun/Creatinine Ratio 20.4 (12.0-20.0); CO2, Blood 22 mmol/L (21-32); Calcium, Blood 8.1 mg/dL (8.5-10.1); Chloride, Blood 107 mmol/L (98-108); Creatinine, Blood 1.13 mg/dL (0.60-1.20); Globulin, Blood 5.3 g/dL (2.2-4.0); Glomerular Filtration Rate >60 (60-); Glucose, Blood 175 mg/dL (70-99); Potassium, Blood 2.8 mmol/L (3.5-5.5); Sodium, Blood 138 mmol/L (136-145); Total Protein, Blood 7.3 g/dL (6.4-8.2)
[2017-11-27] MEDS ORDERED: TAMS.4ER PO (10:00)
[2017-11-27] MEDS ORDERED: Bactrim Ds Tab1 EACH PO (10:01)
[2017-11-27 18:08] LABS: Source, Urine Catheter
[2017-11-27 18:12] LABS: Appearance, Urine Hazy (Clear); Bilirubin, Urine Neg (Neg); Blood, Urine 3+ (Neg); Color, Urine Yellow (P-Yellow); Glucose Qualitative, Urine Neg (Neg); Ketones, Urine 1+ (Neg); Leukocyte Esterase, Urine 2+ (Neg); Nitrite, Urine Neg (Neg); Protein, Urine 2+ (Neg); Specific Gravity, Urine 1.015 (1.003-1.022); Urobilinogen, Urine NORM (Normal)
[2017-11-27 18:20] LABS: Amorphous Light (0-Heavy); Squamous Epithelial Cells Rare /hpf (Few)
[2017-11-27 18:22] LABS: Bacteria Few /hpf
[2017-11-28 05:25] LABS: BASOPHILS ABSOLUTE AUTO 0.05 K/mm3 (0.00-0.23); BASOPHILS PERCENT AUTO 0 % (0-2); EOSINOPHILS ABSOLUTE AUTO 0.19 K/mm3 (0.00-0.68); EOSINOPHILS PERCENT AUTO 2 % (0-6); Hematocrit 24.1 % (37.0-53.0); Hemoglobin 7.9 g/dL (13.5-17.5); IMMATURE GRAN ABSOLUTE AUTO 0.04 K/mm3 (0.00-0.10); IMMATURE GRAN PERCENT AUTO 0 % (0-1); LYMPHOCYTES PERCENT AUTO 10 % (21-46); MONOCYTES PERCENT AUTO 7 % (4-13); Mean Corpuscular HGB 27.3 pg (26.0-34.0); Mean Corpuscular HGB Conc 32.8 g/dL (31.5-36.5); Mean Corpuscular Volume 83 fL (80-100); Mean Platelet Volume 9.1 fL (9.1-12.4); NEUTROPHILS ABSOLUTE AUTO 9.35 K/mm3 (1.96-9.15); NEUTROPHILS PERCENT AUTO 81 % (41-73); Platelet Count 313 K/mm3 (150-400); RDW Coefficient Variation 14.6 % (11.7-14.2); RDW Standard Deviation 44.3 fL (35.1-46.3); Red Blood Cell Count 2.89 M/mm3 (4.30-5.90); White Blood Cell Count 11.53 K/mm3 (4.00-11.30)
[2017-11-28 05:52] LABS: Anion Gap 9 mmol/L (6-16); Blood Urea Nitrogen 17 mg/dL (8-24); Bun/Creatinine Ratio 16.3 (12.0-20.0); CO2, Blood 19 mmol/L (21-32); Calcium, Blood 8.1 mg/dL (8.5-10.1); Chloride, Blood 108 mmol/L (98-108); Creatinine, Blood 1.04 mg/dL (0.60-1.20); Glomerular Filtration Rate >60 (60-); Glucose, Blood 200 mg/dL (70-99); Potassium, Blood 3.2 mmol/L (3.5-5.5); Sodium, Blood 136 mmol/L (136-145)
[2017-11-28 05:58] LABS: Percent Saturation 6.4 % (20.0-50.0)
[2017-11-29 05:10] LABS: BASOPHILS ABSOLUTE AUTO 0.04 K/mm3 (0.00-0.23); BASOPHILS PERCENT AUTO 0 % (0-2); EOSINOPHILS ABSOLUTE AUTO 0.31 K/mm3 (0.00-0.68); EOSINOPHILS PERCENT AUTO 3 % (0-6); Hematocrit 24.3 % (37.0-53.0); Hemoglobin 8.2 g/dL (13.5-17.5); IMMATURE GRAN ABSOLUTE AUTO 0.05 K/mm3 (0.00-0.10); IMMATURE GRAN PERCENT AUTO 1 % (0-1); LYMPHOCYTES ABSOLUTE AUTO 1.23 K/mm3 (0.84-5.20); LYMPHOCYTES PERCENT AUTO 12 % (21-46); MONOCYTES ABSOLUTE AUTO 0.72 K/mm3 (0.16-1.47); MONOCYTES PERCENT AUTO 7 % (4-13); Mean Corpuscular HGB Conc 33.7 g/dL (31.5-36.5); Mean Corpuscular Volume 83 fL (80-100); Mean Platelet Volume 8.9 fL (9.1-12.4); NEUTROPHILS ABSOLUTE AUTO 8.15 K/mm3 (1.96-9.15); NEUTROPHILS PERCENT AUTO 78 % (41-73); Platelet Count 326 K/mm3 (150-400); RDW Coefficient Variation 14.6 % (11.7-14.2); RDW Standard Deviation 44.1 fL (35.1-46.3); Red Blood Cell Count 2.93 M/mm3 (4.30-5.90)
[2017-11-29 05:42] LABS: Anion Gap 9 mmol/L (6-16); Blood Urea Nitrogen 12 mg/dL (8-24); Bun/Creatinine Ratio 13.1 (12.0-20.0); CO2, Blood 21 mmol/L (21-32); Calcium, Blood 8.4 mg/dL (8.5-10.1); Chloride, Blood 108 mmol/L (98-108); Creatinine, Blood 0.91 mg/dL (0.60-1.20); Glomerular Filtration Rate >60 (60-); Glucose, Blood 215 mg/dL (70-99); Potassium, Blood 3.4 mmol/L (3.5-5.5); Sodium, Blood 138 mmol/L (136-145)
[2017-12-01 05:22] LABS: BASOPHILS ABSOLUTE AUTO 0.04 K/mm3 (0.00-0.23); BASOPHILS PERCENT AUTO 0 % (0-2); EOSINOPHILS PERCENT AUTO 1 % (0-6); Hematocrit 27.1 % (37.0-53.0); IMMATURE GRAN ABSOLUTE AUTO 0.08 K/mm3 (0.00-0.10); IMMATURE GRAN PERCENT AUTO 1 % (0-1); LYMPHOCYTES ABSOLUTE AUTO 1.03 K/mm3 (0.84-5.20); LYMPHOCYTES PERCENT AUTO 7 % (21-46); MONOCYTES ABSOLUTE AUTO 0.73 K/mm3 (0.16-1.47); MONOCYTES PERCENT AUTO 5 % (4-13); Mean Corpuscular HGB 27.3 pg (26.0-34.0); Mean Corpuscular HGB Conc 33.2 g/dL (31.5-36.5); Mean Corpuscular Volume 82 fL (80-100); Mean Platelet Volume 8.7 fL (9.1-12.4); NEUTROPHILS ABSOLUTE AUTO 11.94 K/mm3 (1.96-9.15); NEUTROPHILS PERCENT AUTO 85 % (41-73); Platelet Count 363 K/mm3 (150-400); RDW Coefficient Variation 14.7 % (11.7-14.2); White Blood Cell Count 14.02 K/mm3 (4.00-11.30)
[2017-12-01 05:56] LABS: Alanine Aminotransfer (ALT/SGP 30 U/L (12-78); Albumin, Blood 1.8 g/dL (3.4-5.0); Albumin/Globulin Ratio 0.3 (0.8-1.8); Alk Phos 60 U/L (50-136); Anion Gap 8 mmol/L (6-16); Aspartate Aminotrans (AST/SGOT 27 U/L (12-37); Bilirubin, Total 0.3 mg/dL (0.1-1.0); Blood Urea Nitrogen 10 mg/dL (8-24); Bun/Creatinine Ratio 11.5 (12.0-20.0); CO2, Blood 23 mmol/L (21-32); Calcium, Blood 8.4 mg/dL (8.5-10.1); Chloride, Blood 102 mmol/L (98-108); Creatinine, Blood 0.87 mg/dL (0.60-1.20); Glomerular Filtration Rate >60 (60-); Glucose, Blood 192 mg/dL (70-99); Potassium, Blood 3.9 mmol/L (3.5-5.5); Sodium, Blood 133 mmol/L (136-145); Total Protein, Blood 7.8 g/dL (6.4-8.2)
[2017-12-02 05:18] LABS: BASOPHILS ABSOLUTE AUTO 0.06 K/mm3 (0.00-0.23); BASOPHILS PERCENT AUTO 0 % (0-2); EOSINOPHILS ABSOLUTE AUTO 0.25 K/mm3 (0.00-0.68); EOSINOPHILS PERCENT AUTO 2 % (0-6); Hematocrit 25.2 % (37.0-53.0); Hemoglobin 8.3 g/dL (13.5-17.5); IMMATURE GRAN ABSOLUTE AUTO 0.11 K/mm3 (0.00-0.10); IMMATURE GRAN PERCENT AUTO 1 % (0-1); LYMPHOCYTES ABSOLUTE AUTO 1.19 K/mm3 (0.84-5.20); LYMPHOCYTES PERCENT AUTO 7 % (21-46); MONOCYTES ABSOLUTE AUTO 0.71 K/mm3 (0.16-1.47); MONOCYTES PERCENT AUTO 4 % (4-13); Mean Corpuscular HGB 27.1 pg (26.0-34.0); Mean Corpuscular HGB Conc 32.9 g/dL (31.5-36.5); Mean Corpuscular Volume 82 fL (80-100); Mean Platelet Volume 8.7 fL (9.1-12.4); NEUTROPHILS PERCENT AUTO 86 % (41-73); Platelet Count 408 K/mm3 (150-400); RDW Coefficient Variation 14.8 % (11.7-14.2); RDW Standard Deviation 44.9 fL (35.1-46.3); Red Blood Cell Count 3.06 M/mm3 (4.30-5.90); White Blood Cell Count 16.62 K/mm3 (4.00-11.30)
[2017-12-03 05:19] LABS: BASOPHILS ABSOLUTE AUTO 0.07 K/mm3 (0.00-0.23); BASOPHILS PERCENT AUTO 0 % (0-2); EOSINOPHILS ABSOLUTE AUTO 0.11 K/mm3 (0.00-0.68); EOSINOPHILS PERCENT AUTO 1 % (0-6); Hematocrit 23.9 % (37.0-53.0); Hemoglobin 7.9 g/dL (13.5-17.5); IMMATURE GRAN ABSOLUTE AUTO 0.25 K/mm3 (0.00-0.10); IMMATURE GRAN PERCENT AUTO 1 % (0-1); LYMPHOCYTES ABSOLUTE AUTO 1.01 K/mm3 (0.84-5.20); LYMPHOCYTES PERCENT AUTO 6 % (21-46); MONOCYTES PERCENT AUTO 5 % (4-13); Mean Corpuscular HGB 27.5 pg (26.0-34.0); Mean Corpuscular HGB Conc 33.1 g/dL (31.5-36.5); Mean Corpuscular Volume 83 fL (80-100); NEUTROPHILS ABSOLUTE AUTO 15.61 K/mm3 (1.96-9.15); NEUTROPHILS PERCENT AUTO 87 % (41-73); Platelet Count 369 K/mm3 (150-400); RDW Coefficient Variation 14.9 % (11.7-14.2); RDW Standard Deviation 45.6 fL (35.1-46.3); Red Blood Cell Count 2.87 M/mm3 (4.30-5.90); White Blood Cell Count 17.95 K/mm3 (4.00-11.30)
[2017-12-03 05:30] LABS: Bun/Creatinine Ratio 21.7 (12.0-20.0); Calcium, Blood 8.3 mg/dL (8.5-10.1); Creatinine, Blood 1.57 mg/dL (0.60-1.20); Potassium, Blood 3.6 mmol/L (3.5-5.5)
[2017-12-04 05:21] LABS: BASOPHILS ABSOLUTE AUTO 0.06 K/mm3 (0.00-0.23); BASOPHILS PERCENT AUTO 0 % (0-2); EOSINOPHILS ABSOLUTE AUTO 0.15 K/mm3 (0.00-0.68); EOSINOPHILS PERCENT AUTO 1 % (0-6); Hematocrit 21.9 % (37.0-53.0); Hemoglobin 7.3 g/dL (13.5-17.5); IMMATURE GRAN ABSOLUTE AUTO 0.15 K/mm3 (0.00-0.10); IMMATURE GRAN PERCENT AUTO 1 % (0-1); LYMPHOCYTES ABSOLUTE AUTO 0.97 K/mm3 (0.84-5.20); LYMPHOCYTES PERCENT AUTO 6 % (21-46); MONOCYTES ABSOLUTE AUTO 0.76 K/mm3 (0.16-1.47); MONOCYTES PERCENT AUTO 5 % (4-13); Mean Corpuscular HGB 27.8 pg (26.0-34.0); Mean Corpuscular HGB Conc 33.3 g/dL (31.5-36.5); Mean Corpuscular Volume 83 fL (80-100); Mean Platelet Volume 8.7 fL (9.1-12.4); NEUTROPHILS ABSOLUTE AUTO 13.93 K/mm3 (1.96-9.15); NEUTROPHILS PERCENT AUTO 87 % (41-73); Platelet Count 402 K/mm3 (150-400); RDW Coefficient Variation 15.3 % (11.7-14.2); RDW Standard Deviation 46.8 fL (35.1-46.3); Red Blood Cell Count 2.63 M/mm3 (4.30-5.90); White Blood Cell Count 16.02 K/mm3 (4.00-11.30)
[2017-12-04 05:51] LABS: Albumin, Blood 1.5 g/dL (3.4-5.0); Albumin/Globulin Ratio 0.3 (0.8-1.8); Bilirubin, Total 0.2 mg/dL (0.1-1.0); Bun/Creatinine Ratio 24.6 (12.0-20.0); Calcium, Blood 7.9 mg/dL (8.5-10.1); Creatinine, Blood 1.67 mg/dL (0.60-1.20); Globulin, Blood 5.5 g/dL (2.2-4.0); Potassium, Blood 3.4 mmol/L (3.5-5.5)
== END 2017-12-05 01:13 | disposition short-term general hospital (02) | DRG 593 ==
LOC: ER 08:18 → MEDS 08:19 → ER 08:19 → MEDS 13:25
PROVIDERS: Emergency Medicine; Family Medicine; Internal Medicine; Orthopaedic Surgery
PROC: 02HV33Z Insertion of Infusion Device into Superior Vena Cava, Percutaneous Approach (ICD-10-PCS; principal; 2017-12-02)
DX: L89.150 Pressure ulcer of sacral region, unstageable (principal); M46.28 Osteomyelitis of vertebra, sacral and sacrococcygeal region; N39.0 Urinary tract infection, site not specified; N17.9 Acute kidney failure, unspecified; E11.69 Type 2 diabetes mellitus with other specified complication; L89.619 Pressure ulcer of right heel, unspecified stage; E87.6 Hypokalemia; E11.42 Type 2 diabetes mellitus with diabetic polyneuropathy; D63.8 Anemia in other chronic diseases classified elsewhere; E11.51 Type 2 diabetes mellitus with diabetic peripheral angiopathy without gangrene; E11.22 Type 2 diabetes mellitus with diabetic chronic kidney disease; N18.2 Chronic kidney disease, stage 2 (mild); R26.9 Unspecified abnormalities of gait and mobility; E66.9 Obesity, unspecified; Z74.09 Other reduced mobility; Z68.32 Body mass index [BMI] 32.0-32.9, adult; Z95.820 Peripheral vascular angioplasty status with implants and grafts; Z79.2 Long term (current) use of antibiotics; Z86.14 Personal history of Methicillin resistant Staphylococcus aureus infection; Z89.432 Acquired absence of left foot; Z89.431 Acquired absence of right foot; Z79.02 Long term (current) use of antithrombotics/antiplatelets; Z79.82 Long term (current) use of aspirin; Z79.4 Long term (current) use of insulin; Z79.899 Other long term (current) drug therapy
CPT/HCPCS: 36415; 36569; 51702; 71046; 72193; 73630; 80048; 80053; 81001; 82728; 82947; 83540; 83550; 83605; 84443; 85025; 85651; 86850; 86900; 86901; 87040; 87493; 93922; 96365; 97110; 97162; 97166; 97530; 97535; 99285; C1751; G0378; G8978; G8979; G8987; G8988; J0696; J1650; J1815; J2543; J3370; J3480; J7030; J7050; Q9967

== ENCOUNTER 2018-02-11 17:11 | Day surgery (SDC) | payer MEDICARE, OTHER ==
[~2018-02-11 17:11] MED LIST changes: +ASCO500 PO; +Bactrim Ds Tab1 EACH PO; +Ferrous Sulfat325 M2 PO; +HYDR10 PO; +Humalog100 UNIT/3; +INSULANPEN SC; +LINE600 PO
[2018-02-11 20:49] LABS: Hematocrit 20.3 % (37.0-53.0); Hemoglobin 6.8 g/dL (13.5-17.5)
== END 2018-02-11 21:27 ==
LOC: TRN 17:11 → MEDS 17:15 → ENPENDDIS 18:45 → TRN 21:27
PROVIDERS: Nurse Practitioner Family
DX: D64.9 Anemia, unspecified (principal); Z99.3 Dependence on wheelchair; L89.159 Pressure ulcer of sacral region, unspecified stage; M86.9 Osteomyelitis, unspecified; Z79.4 Long term (current) use of insulin
CPT/HCPCS: 36415; 82947; 85014; 85018; 86850; 86900; 86901

== ENCOUNTER 2018-02-13 09:07 | Day surgery (SDC) | payer MEDICARE, OTHER ==
[2018-02-13] MEDS ORDERED: Omeprazole20 M1 PO (10:05)
[2018-02-13] MEDS ORDERED: FINA5 PO (10:07)
== END 2018-02-13 18:37 | disposition home or self-care (01) ==
LOC: TRN 09:07 → MEDS 09:08 → TRN 18:37
PROC: 30233N1 Transfusion of Nonautologous Red Blood Cells into Peripheral Vein, Percutaneous Approach (ICD-10-PCS; principal; 2018-02-13)
DX: D64.9 Anemia, unspecified (principal)
CPT/HCPCS: 36415; 86850; 86900; 86901; 86922; J7030; P9016

== ENCOUNTER → 2018-02-16 | Outpatient (CLI) | payer MEDICARE, OTHER ==
[~2018-02-16] MED LIST changes: +Omeprazole20 M1 PO
== END | disposition home or self-care (01) ==
LOC: EDSTATUS 16:08 → LAB RH 16:38 → LAB UVN 16:38
DX: M86.9 Osteomyelitis, unspecified (principal); Z16.21 Resistance to vancomycin
CPT/HCPCS: 87070; 87075; 87077; 87186; 87205

== ENCOUNTER → 2018-03-01 | Outpatient (CLI) | payer MEDICARE, OTHER | END | disposition home or self-care (01) | LOC: LAB RH 10:46 → EDSTATUS 11:02 | DX: M86.9 Osteomyelitis, unspecified (principal); Z16.21 Resistance to vancomycin | CPT/HCPCS: 87070; 87075; 87077; 87186; 87205 ==

== ENCOUNTER → 2018-03-04 | Outpatient (CLI) | payer MEDICARE, OTHER ==
[2018-03-04 09:13] LABS: Bilirubin, Urine Neg (Neg); Blood, Urine 4+ (Neg); Glucose Qualitative, Urine 2+ (Neg); Ketones, Urine Neg (Neg); Leukocyte Esterase, Urine 3+ (Neg); Nitrite, Urine Neg (Neg); Protein, Urine 2+ (Neg); Specific Gravity, Urine 1.015 (1.003-1.022); Urobilinogen, Urine NORM (Normal)
[2018-03-04 09:20] LABS: Appearance, Urine Hazy (Clear); Color, Urine Yellow (P-Yellow)
[2018-03-04 09:22] LABS: Amorphous Mod (0-Heavy); Bacteria Few /hpf; Mucus Light (0-Heavy); Squamous Epithelial Cells Few /hpf (Few); Yeast/Fungi Urine Mod /hpf
== END | disposition home or self-care (01) ==
LOC: LAB RH 08:38 → EDSTATUS 15:47
PROVIDERS: Internal Medicine Infectious Disease
DX: M86.9 Osteomyelitis, unspecified (principal); Z16.21 Resistance to vancomycin
CPT/HCPCS: 81001; 87086

== ENCOUNTER → 2018-09-03 | Outpatient (CLI) | payer MEDICARE, OTHER | END | disposition home or self-care (01) | LOC: EDSTATUS 10:18 → LAB RH 11:33 | DX: A41.02 Sepsis due to Methicillin resistant Staphylococcus aureus (principal) | CPT/HCPCS: 87081 ==

== ENCOUNTER → 2019-09-26 | Outpatient (CLI) | payer MEDICARE, OTHER | END | disposition home or self-care (01) | LOC: LAB SHORT 18:20 → LAB 18:20 | DX: E11.622 Type 2 diabetes mellitus with other skin ulcer (principal); L97.919 Non-pressure chronic ulcer of unspecified part of right lower leg with unspecified severity | CPT/HCPCS: 87070; 87075; 87077; 87147; 87186; 87205 ==

== ENCOUNTER → 2020-07-16 | Outpatient (CLI) | payer MEDICARE, OTHER ==
[2020-07-16 18:45] LABS: BASOPHILS ABSOLUTE AUTO 0.12 K/mm3 (0.00-0.23); BASOPHILS PERCENT AUTO 1 % (0-2); EOSINOPHILS ABSOLUTE AUTO 0.55 K/mm3 (0.00-0.68); EOSINOPHILS PERCENT AUTO 6 % (0-6); Hematocrit 30.6 % (37.0-53.0); Hemoglobin 9.1 g/dL (13.5-17.5); IMMATURE GRAN ABSOLUTE AUTO 0.05 K/mm3 (0.00-0.10); IMMATURE GRAN PERCENT AUTO 1 % (0-1); LYMPHOCYTES ABSOLUTE AUTO 1.57 K/mm3 (0.84-5.20); LYMPHOCYTES PERCENT AUTO 18 % (21-46); MONOCYTES ABSOLUTE AUTO 0.59 K/mm3 (0.16-1.47); MONOCYTES PERCENT AUTO 7 % (4-13); Mean Corpuscular HGB 24.4 pg (26.0-34.0); Mean Corpuscular HGB Conc 29.7 g/dL (31.5-36.5); Mean Corpuscular Volume 82 fL (80-100); Mean Platelet Volume 12.2 fL (9.1-12.4); NEUTROPHILS ABSOLUTE AUTO 5.69 K/mm3 (1.96-9.15); NEUTROPHILS PERCENT AUTO 66 % (41-73); Platelet Count 199 K/mm3 (150-400); RDW Coefficient Variation 17.2 % (11.7-14.2); RDW Standard Deviation 49.3 fL (35.1-46.3); Red Blood Cell Count 3.73 M/mm3 (4.30-5.90); White Blood Cell Count 8.57 K/mm3 (4.00-11.30)
== END | disposition home or self-care (01) ==
LOC: LAB 15:45 → LAB SHORT 15:45
PROVIDERS: Family Medicine
DX: D64.9 Anemia, unspecified (principal)
CPT/HCPCS: 82728; 83540; 83550; 85025

== ENCOUNTER → 2021-12-10 | Outpatient (CLI) | payer MEDICARE, OTHER ==
[~2021-12-10] MED LIST changes: +Flagyl500 MG PO
[2021-12-10 09:45] LABS: BASOPHILS ABSOLUTE AUTO 0.08 K/mm3 (0.00-0.23); BASOPHILS PERCENT AUTO 1 % (0-2); EOSINOPHILS ABSOLUTE AUTO 0.59 K/mm3 (0.00-0.68); EOSINOPHILS PERCENT AUTO 8 % (0-6); Hematocrit 33.5 % (37.0-53.0); Hemoglobin 10.6 g/dL (13.5-17.5); IMMATURE GRAN ABSOLUTE AUTO 0.03 K/mm3 (0.00-0.10); IMMATURE GRAN PERCENT AUTO 0 % (0-1); LYMPHOCYTES ABSOLUTE AUTO 2.31 K/mm3 (0.84-5.20); LYMPHOCYTES PERCENT AUTO 30 % (21-46); MONOCYTES ABSOLUTE AUTO 0.65 K/mm3 (0.16-1.47); MONOCYTES PERCENT AUTO 8 % (4-13); Mean Corpuscular HGB 27.6 pg (26.0-34.0); Mean Corpuscular HGB Conc 31.6 g/dL (31.5-36.5); Mean Corpuscular Volume 87 fL (80-100); Mean Platelet Volume 10.4 fL (9.1-12.4); NEUTROPHILS ABSOLUTE AUTO 4.07 K/mm3 (1.96-9.15); NEUTROPHILS PERCENT AUTO 53 % (41-73); Platelet Count 304 K/mm3 (150-400); RDW Coefficient Variation 17.7 % (11.7-14.2); RDW Standard Deviation 56.3 fL (35.1-46.3); Red Blood Cell Count 3.84 M/mm3 (4.30-5.90); White Blood Cell Count 7.73 K/mm3 (4.00-11.30)
== END | disposition home or self-care (01) ==
LOC: LAB UVN 09:05 → EDSTATUS 12:04
PROVIDERS: Internal Medicine
DX: N17.8 Other acute kidney failure (principal); E11.42 Type 2 diabetes mellitus with diabetic polyneuropathy
CPT/HCPCS: 85025

== ENCOUNTER → 2022-06-05 | Outpatient (CLI) | payer MEDICARE, OTHER ==
[2022-06-10 04:09] LABS: QUANTIFERON MITOGEN VALUE >10.00 IU/mL (.); QUANTIFERON NIL VALUE 0.06 IU/mL (.); QUANTIFERON TB2 AG VALUE 0.04 IU/mL (.); QUANTIFERON-TB GOLD PLUS Negative (Negative)
== END | disposition home or self-care (01) ==
LOC: LAB 11:28 → LAB SHORT 11:28
PROVIDERS: Dermatology
DX: L40.0 Psoriasis vulgaris (principal); Z79.899 Other long term (current) drug therapy
CPT/HCPCS: 86480

== ENCOUNTER 2022-06-29 15:55 | Inpatient (IN) | payer MEDICARE, OTHER ==
[~2022-06-29] VITALS: Ht 167.6 cm; Wt 102.5 kg
[~2022-06-29 15:55] MED LIST changes: -ATOR80 PO; -BASAGLAR K100 UNIT/3 SC; -BENADRYL25 MG; -BENADRYL25 MG PO; -BISA10S PR; -BUME1 PO; -DOXY100 PO; -DULCOLAX400 MG/5 M PO; -FERSU300 PO; -FURO20 PO; -FUROSEMIDE20 MG PO; -Fleet Enema132 ML PR; -HUMALOG JU100 UNIT/2 SC; -LIPITOR80 MG PO; -LOSA25 PO; -METFORMIN HCL500 M3 PO; -METO100 PO; -NITR100CA PO; -OZEMPIC1 MG/0.72 SC; -PANT20 PO; -PIPERACIL-TA3.375 G1 IV; -PLAVIX75 MG PO; -POTA8 PO; -PROBIOTIC1 EA13 PO; -TRAM50 PO; -TRIA15CR3 TOP; -VITAMIN C125 MG PO; -ZYVOX IV
[2022-06-29 16:34] LABS: BASOPHILS ABSOLUTE AUTO 0.13 K/mm3 (0.00-0.23); BASOPHILS PERCENT AUTO 1 % (0-2); EOSINOPHILS ABSOLUTE AUTO 0.67 K/mm3 (0.00-0.68); EOSINOPHILS PERCENT AUTO 6 % (0-6); Hematocrit 26.8 % (37.0-53.0); Hemoglobin 8.1 g/dL (13.5-17.5); IMMATURE GRAN ABSOLUTE AUTO 0.05 K/mm3 (0.00-0.10); IMMATURE GRAN PERCENT AUTO 0 % (0-1); LYMPHOCYTES ABSOLUTE AUTO 1.74 K/mm3 (0.84-5.20); LYMPHOCYTES PERCENT AUTO 15 % (21-46); MONOCYTES PERCENT AUTO 6 % (4-13); Mean Corpuscular HGB 22.2 pg (26.0-34.0); Mean Corpuscular HGB Conc 30.2 g/dL (31.5-36.5); Mean Corpuscular Volume 73 fL (80-100); Mean Platelet Volume 9.2 fL (9.1-12.4); NEUTROPHILS ABSOLUTE AUTO 8.54 K/mm3 (1.96-9.15); NEUTROPHILS PERCENT AUTO 72 % (41-73); Platelet Count 511 K/mm3 (150-400); RDW Coefficient Variation 17.6 % (11.7-14.2); RDW Standard Deviation 46.6 fL (35.1-46.3); Red Blood Cell Count 3.65 M/mm3 (4.30-5.90); White Blood Cell Count 11.83 K/mm3 (4.00-11.30)
[2022-06-29 17:03] LABS: Albumin, Blood 2.4 g/dL (3.4-5.0); Albumin/Globulin Ratio 0.6 (0.8-1.8); Bilirubin, Total 0.3 mg/dL (0.1-1.0); Bun/Creatinine Ratio 23.3 (12.0-20.0); Calcium, Blood 7.8 mg/dL (8.5-10.1); Creatinine, Blood 1.63 mg/dL (0.60-1.20); Globulin, Blood 3.9 g/dL (2.2-4.0); Potassium, Blood 4.4 mmol/L (3.5-5.5); Total Protein, Blood 6.3 g/dL (6.4-8.2)
[2022-06-29] MEDS ORDERED: PLAVIX75 MG PO (22:46)
[2022-06-29] MEDS ORDERED: FUROSEMIDE20 MG PO (22:47)
[2022-06-29] MEDS ORDERED: LIPITOR80 MG PO (22:48)
[2022-06-29] MEDS ORDERED: METFORMIN HCL500 M3 PO (22:49)
[2022-06-29] MEDS ORDERED: BASAGLAR K100 UNIT/3 SC (22:50)
[2022-06-29] MEDS ORDERED: OZEMPIC1 MG/0.72 SC (22:51)
[2022-06-29] MEDS ORDERED: POTA8 PO (22:52)
[2022-06-30 02:00] LABS: Source, Urine Straight Cath
[2022-06-30 02:05] LABS: Appearance, Urine Cloudy (Clear); Bilirubin, Urine Neg (Neg); Blood, Urine 1+ (Neg); Color, Urine Yellow (P-Yellow); Glucose Qualitative, Urine Neg (Neg); Ketones, Urine Neg (Neg); Leukocyte Esterase, Urine 3+ (Neg); Nitrite, Urine Pos (Neg); Protein, Urine 2+ (Neg); Urobilinogen, Urine NORM (Normal)
[2022-06-30 02:13] LABS: Hyaline Casts 0-2 /lpf (0-2); White Blood Cells, Urine 50-100 /hpf (0-5)
[2022-06-30 02:14] LABS: Bacteria Many /hpf; Red Blood Cells, Urine 0-2 /hpf (0-2); Squamous Epithelial Cells Rare /hpf (Few)
--- NOTE | 2022-06-30 06:29 | NUR ---
NEW ADMIT/LEAD DATA ARCHITECT SUMMARY PT CAME INTO ED F/UVNR. ARRIVED T/ROOM AT 2100; XFER T/BED W/SLIDER SHEET/3 STAFF. PT A/OX3. PT HAS RED/DRY SCALING SKIN F/HEAD TO TOE. SECOND NURSE SKIN ASSESSMENT W/ZAMZAM ISRAEL. PT HAS SMALL ABRASION ON LEFT CHIN AND TWO PIN WHOLE SIZED OPENINGS ON COCCYX; PICS IN CHART. PT GREER OF SPINAL SURGERY AND MRSA IN COCCYX WOUND--ON CONTACT. PT HX OF IDDM AND PAD. 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 PT HAS VISIBLE TREMORS IN BUE--DENIES HX OF PARKINSONS; UNAWARE OF CAUSE. URINE SAMPLE COLLECTED--CULTURE INDICATED. STOOL SAMPLE UNCOLLECTED--RECENT HX OF DIARRHEA. NS AT 75MLS/HR. PT ATE SANDWICH AND DRANK WATER--NO ISSUES W/SWALLOWING NOTED. PT REPORTS USES WHEELCHAIR TO AMBULATE AT UVNR; RECENTY FITTED F/LEG PROSTHETIC AND WORKING W/PT TO USE. PT INCONTIENENT OF BOWEL/BLADDER--ATTENDS IN PLACE. THIS AM PT C/O OF SKIN IRRITATION AND ITCHING. PT IS PLEASANT AND COOPERATIVE. ORIENTED TO ROOM/CALL LIGHT. ABLE TO MAKE NEEDS KNOW. BED IS LOCKED/LOW. CALL LIGHT IN REACH.
--- NOTE | 2022-06-30 18:18 | NUR ---
SHIFT SUMMARY PT UP IN RECLINER FOR SEVERAL HOURS THIS AFTERNOON. HAS DENIED PAIN OR NAUSEA. SKIN RED AND APPEARS IRRITATED BUT PT DENIES DISTRESS-REPORTS IT WAS DIAGNOSED BY CAMERA MAKER AT THE BEGINNING OF JUNE INTERNAL PSORIASIS DUE TO HOW MUCH OF HIS SKIN IS INVOLVED. DOES SAY THE FLAKING IN HIS HAIR IS IMPROVED WHEN HE STARTED USING TGEL SHAMPOO. NO FEELINGS OF RESP DISTRESS AND NO STOOL.
--- NOTE | 2022-07-01 04:56 | NUR ---
DREDGE OPERATOR SUMMARY NO ACUTE CHANGES. NO BOWEL MOVEMENT DURING THIS SHIFT--STOOL SAMPLE STILL OUTSTANDING. PT PLEASANT AND COOPERATIVE. COMPLETE ATTENDS/BEDDING CHANGE. PT SKIN REMAINS RED, DRY, AND PEELING. SMALL SCRATCH TO RT LOWER ABD W/AZIZA BLOOD. CLEANED AND PLACED GAUZE. PT BLOOD PRESSUE 117/47. PT SLEPT WELL T/O THE NIGHT. ABLE TO MAKE NEEDS KNOWN. CALL LIGHT IN REACH.
[2022-07-01 16:40] LABS: SARS-Cov-2 (COVID-19) PCR, MMC NEGATIVE (NEGATIVE)
[2022-07-01] MEDS ORDERED: PANT20 PO (16:45)
--- NOTE | 2022-07-01 18:40 | NUR ---
REPORT CALLED TO GRACIE AT [facility]. [facility] W/ TRANSPORTATION HERE TO PICK PT UP AT 1800. ROOM LIFT USED TO TRANSFER PT TO W/C. TO CURB WITH NEEDLE BOARD REPAIRER.
== END 2022-07-01 18:21 | disposition home or self-care (01) | DRG 948 ==
LOC: ER 15:55 → MEDS 17:59
PROVIDERS: Emergency Medicine; Internal Medicine; ADMIT Internal Medicine
DX: R53.1 Weakness (principal); R19.7 Diarrhea, unspecified; L40.9 Psoriasis, unspecified; N18.30 Chronic kidney disease, stage 3 unspecified; D63.1 Anemia in chronic kidney disease; R82.81 Pyuria; Z79.82 Long term (current) use of aspirin; Z79.02 Long term (current) use of antithrombotics/antiplatelets; Z79.4 Long term (current) use of insulin; Z79.899 Other long term (current) drug therapy; Z89.432 Acquired absence of left foot; Z89.431 Acquired absence of right foot; E11.51 Type 2 diabetes mellitus with diabetic peripheral angiopathy without gangrene; Z20.822 Contact with and (suspected) exposure to COVID-19; E11.22 Type 2 diabetes mellitus with diabetic chronic kidney disease
CPT/HCPCS: 36415; 71046; 80053; 81001; 82947; 83880; 84484; 85025; 85651; 86140; 87077; 87086; 87186; 93005; 93010; 97110; 97162; 97166; 97530; A9270; J0696; J1650; J1815; J7030; U0004

== ENCOUNTER → 2022-06-29 | Outpatient (CLI) | payer MEDICARE, OTHER ==
[~2022-06-29] MED LIST changes: +ATOR80 PO; +BASAGLAR K100 UNIT/3 SC; +BENADRYL25 MG; +BENADRYL25 MG PO; +BISA10S PR; +BUME1 PO; +DOXY100 PO; +DULCOLAX400 MG/5 M PO; +FERSU300 PO; +FURO20 PO; +FUROSEMIDE20 MG PO; +Fleet Enema132 ML PR; +HUMALOG JU100 UNIT/2 SC; +LIPITOR80 MG PO; +LOSA25 PO; -LOSA50 PO; +LOSARTAN POTAS100 MG PO; +METFORMIN HCL500 M3 PO; +METO100 PO; +NITR100CA PO; +OMEP20ER PO; +OZEMPIC1 MG/0.72 SC; -Omeprazole20 M1 PO; +PANT20 PO; +PIPERACIL-TA3.375 G1 IV; +PLAVIX75 MG PO; +POTA8 PO; +PROBIOTIC1 EA13 PO; +TRAM50 PO; +TRIA15CR3 TOP; +VITAMIN C125 MG PO; +ZYVOX IV
[2022-06-29 13:06] LABS: Albumin, Blood 2.4 g/dL (3.4-5.0); Albumin/Globulin Ratio 0.6 (0.8-1.8); Bilirubin, Total 0.3 mg/dL (0.1-1.0); Bun/Creatinine Ratio 24.7 (12.0-20.0); Creatinine, Blood 1.66 mg/dL (0.60-1.20); Globulin, Blood 3.9 g/dL (2.2-4.0); Potassium, Blood 4.5 mmol/L (3.5-5.5); Total Protein, Blood 6.3 g/dL (6.4-8.2)
[2022-06-29 13:30] LABS: Hematocrit 27.5 % (37.0-53.0); Hemoglobin 8.2 g/dL (13.5-17.5); Mean Corpuscular HGB Conc 29.8 g/dL (31.5-36.5); Mean Corpuscular Volume 74 fL (80-100); Mean Platelet Volume 9.4 fL (9.1-12.4); Platelet Count 525 K/mm3 (150-400); RDW Coefficient Variation 17.7 % (11.7-14.2); RDW Standard Deviation 46.9 fL (35.1-46.3); Red Blood Cell Count 3.72 M/mm3 (4.30-5.90); White Blood Cell Count 12.97 K/mm3 (4.00-11.30)
== END | disposition home or self-care (01) ==
LOC: EDSTATUS 08:50 → LAB UVN 11:47
PROVIDERS: Internal Medicine
DX: E11.22 Type 2 diabetes mellitus with diabetic chronic kidney disease (principal); N18.30 Chronic kidney disease, stage 3 unspecified; I73.9 Peripheral vascular disease, unspecified; L03.116 Cellulitis of left lower limb; E78.5 Hyperlipidemia, unspecified
CPT/HCPCS: 80053; 85027

== ENCOUNTER 2022-07-09 16:22 | Emergency (ER) | payer MEDICARE, OTHER ==
[~2022-07-09] VITALS: Ht 177.8 cm; Wt 102.1 kg
[~2022-07-09 16:22] MED LIST changes: +BASAGLAR K100 UNIT/3 SC; +FUROSEMIDE20 MG PO; +LIPITOR80 MG PO; +METFORMIN HCL500 M3 PO; +OZEMPIC1 MG/0.72 SC; +PANT20 PO; +PLAVIX75 MG PO; +POTA8 PO
[2022-07-09] MEDS ORDERED: HUMALOG JU100 UNIT/2 SC (17:42)
[2022-07-09] MEDS ORDERED: HYDR10 PO (17:43)
[2022-07-09 18:58] LABS: Albumin, Blood 2.3 g/dL (3.4-5.0); Albumin/Globulin Ratio 0.5 (0.8-1.8); Bilirubin, Total 0.4 mg/dL (0.1-1.0); Bun/Creatinine Ratio 30.1 (12.0-20.0); Calcium, Blood 8.2 mg/dL (8.5-10.1); Creatinine, Blood 1.93 mg/dL (0.60-1.20); Globulin, Blood 4.7 g/dL (2.2-4.0); Potassium, Blood 5.4 mmol/L (3.5-5.5)
[2022-07-09 19:00] LABS: BASOPHILS ABSOLUTE AUTO 0.15 K/mm3 (0.00-0.23); BASOPHILS PERCENT AUTO 2 % (0-2); EOSINOPHILS ABSOLUTE AUTO 0.45 K/mm3 (0.00-0.68); EOSINOPHILS PERCENT AUTO 5 % (0-6); Hematocrit 23.2 % (37.0-53.0); Hemoglobin 7.2 g/dL (13.5-17.5); IMMATURE GRAN ABSOLUTE AUTO 0.08 K/mm3 (0.00-0.10); IMMATURE GRAN PERCENT AUTO 1 % (0-1); LYMPHOCYTES ABSOLUTE AUTO 1.47 K/mm3 (0.84-5.20); LYMPHOCYTES PERCENT AUTO 15 % (21-46); MONOCYTES ABSOLUTE AUTO 0.66 K/mm3 (0.16-1.47); MONOCYTES PERCENT AUTO 7 % (4-13); Mean Corpuscular HGB 22.3 pg (26.0-34.0); Mean Corpuscular Volume 72 fL (80-100); NEUTROPHILS ABSOLUTE AUTO 7.15 K/mm3 (1.96-9.15); NEUTROPHILS PERCENT AUTO 72 % (41-73); RDW Coefficient Variation 19.4 % (11.7-14.2); RDW Standard Deviation 49.6 fL (35.1-46.3); Red Blood Cell Count 3.23 M/mm3 (4.30-5.90); White Blood Cell Count 9.96 K/mm3 (4.00-11.30)
[2022-07-09 19:25] LABS: Platelet Count 582 K/mm3 (150-400)
[2022-07-10] MEDS ORDERED: CIPR500 PO (17:46)
[2022-07-10] MEDS ORDERED: PANT20 PO (17:47)
== END 2022-07-09 20:49 | disposition home or self-care (01) ==
LOC: ER 16:22
PROVIDERS: Emergency Medicine
DX: E11.22 Type 2 diabetes mellitus with diabetic chronic kidney disease (principal); N18.9 Chronic kidney disease, unspecified; D63.1 Anemia in chronic kidney disease; Z79.82 Long term (current) use of aspirin; Z79.899 Other long term (current) drug therapy; Z79.84 Long term (current) use of oral hypoglycemic drugs; Z79.4 Long term (current) use of insulin
CPT/HCPCS: 36415; 80053; 85025; 86850; 86900; 86901; 93005; 93010

== ENCOUNTER 2022-07-12 10:34 | Emergency (ER) | payer MEDICARE, OTHER ==
[~2022-07-12] VITALS: Ht 177.8 cm; Wt 103.4 kg
[~2022-07-12 10:34] MED LIST changes: +HUMALOG JU100 UNIT/2 SC
[2022-07-12] MEDS ORDERED: ASPI81CH PO (11:02)
[2022-07-12] MEDS ORDERED: FINA5 PO (11:03)
[2022-07-12] MEDS ORDERED: ATOR80 PO (11:03)
[2022-07-12] MEDS ORDERED: CLOP75 PO (11:03)
[2022-07-12] MEDS ORDERED: LOSA50 PO (11:03)
[2022-07-12 11:04] LABS: BASOPHILS ABSOLUTE AUTO 0.12 K/mm3 (0.00-0.23); BASOPHILS PERCENT AUTO 1 % (0-2); EOSINOPHILS ABSOLUTE AUTO 0.33 K/mm3 (0.00-0.68); EOSINOPHILS PERCENT AUTO 4 % (0-6); Hematocrit 23.8 % (37.0-53.0); Hemoglobin 7.2 g/dL (13.5-17.5); IMMATURE GRAN ABSOLUTE AUTO 0.03 K/mm3 (0.00-0.10); IMMATURE GRAN PERCENT AUTO 0 % (0-1); LYMPHOCYTES ABSOLUTE AUTO 1.17 K/mm3 (0.84-5.20); LYMPHOCYTES PERCENT AUTO 13 % (21-46); MONOCYTES ABSOLUTE AUTO 0.47 K/mm3 (0.16-1.47); MONOCYTES PERCENT AUTO 5 % (4-13); Mean Corpuscular HGB 22.9 pg (26.0-34.0); Mean Corpuscular HGB Conc 30.3 g/dL (31.5-36.5); Mean Corpuscular Volume 76 fL (80-100); Mean Platelet Volume 9.3 fL (9.1-12.4); NEUTROPHILS ABSOLUTE AUTO 7.12 K/mm3 (1.96-9.15); NEUTROPHILS PERCENT AUTO 77 % (41-73); NRBC ABSOLUTE 0.02 K/mm3 (0.00-0.02); NRBC Auto 0.2 /100 WBC (0.0-0.2); Platelet Count 429 K/mm3 (150-400); RDW Coefficient Variation 21.2 % (11.7-14.2); Red Blood Cell Count 3.15 M/mm3 (4.30-5.90); White Blood Cell Count 9.24 K/mm3 (4.00-11.30)
[2022-07-12] MEDS ORDERED: FURO20 PO ×3 (11:05→13:28)
[2022-07-12] MEDS ORDERED: SULTRIDS PO (11:05)
[2022-07-12] MEDS ORDERED: CIPR500 PO (11:05)
[2022-07-12] MEDS ORDERED: METO100 PO (11:05)
[2022-07-12] MEDS ORDERED: TAMS.4ER PO (11:05)
[2022-07-12] MEDS ORDERED: POTA8 PO (11:05)
[2022-07-12] MEDS ORDERED: PANT20 PO (11:06)
[2022-07-12] MEDS ORDERED: BENADRYL25 MG (11:06)
[2022-07-12] MEDS ORDERED: PIPERACIL-TA3.375 G1 IV (11:06)
[2022-07-12 11:24] LABS: Albumin, Blood 2.1 g/dL (3.4-5.0); Albumin/Globulin Ratio 0.4 (0.8-1.8); Bilirubin, Total 0.5 mg/dL (0.1-1.0); Calcium, Blood 7.5 mg/dL (8.5-10.1); Creatinine, Blood 2.08 mg/dL (0.60-1.20); Globulin, Blood 4.7 g/dL (2.2-4.0); Potassium, Blood 5.5 mmol/L (3.5-5.5); Total Protein, Blood 6.8 g/dL (6.4-8.2)
[2022-07-12 11:27] LABS: Percent Saturation 7.9 % (20.0-50.0)
[2022-07-12] MEDS ORDERED: LOSA25 PO (13:28)
[2022-07-12] MEDS ORDERED: NITR100CA PO (13:28)
[2022-07-12] MEDS ORDERED: FERSU300 PO (13:31)
[2022-07-12] MEDS ORDERED: DOXY100 PO (13:34)
== END 2022-07-12 15:10 | disposition home or self-care (01) ==
LOC: ER 10:34
PROVIDERS: Student in an Organized Health Care Education/Training Program
DX: E11.22 Type 2 diabetes mellitus with diabetic chronic kidney disease (principal); N18.9 Chronic kidney disease, unspecified; N39.0 Urinary tract infection, site not specified; R78.81 Bacteremia; B95.62 Methicillin resistant Staphylococcus aureus infection as the cause of diseases classified elsewhere; R41.0 Disorientation, unspecified; Z79.82 Long term (current) use of aspirin; Z79.899 Other long term (current) drug therapy; Z79.4 Long term (current) use of insulin
CPT/HCPCS: 80053; 82728; 83540; 83550; 84484; 85025

== ENCOUNTER 2022-07-13 17:53 | Inpatient (IN) | payer MEDICARE, OTHER ==
[~2022-07-13] VITALS: Ht 177.8 cm; Wt 107.5 kg
[~2022-07-13 17:53] MED LIST changes: +ATOR80 PO; +BENADRYL25 MG; +DOXY100 PO; +FERSU300 PO; +FURO20 PO; +LOSA25 PO; +METO100 PO; +NITR100CA PO; +PIPERACIL-TA3.375 G1 IV
[2022-07-13 19:43] LABS: BASOPHILS ABSOLUTE AUTO 0.13 K/mm3 (0.00-0.23); BASOPHILS PERCENT AUTO 2 % (0-2); EOSINOPHILS ABSOLUTE AUTO 0.32 K/mm3 (0.00-0.68); EOSINOPHILS PERCENT AUTO 4 % (0-6); Hemoglobin 7.3 g/dL (13.5-17.5); IMMATURE GRAN ABSOLUTE AUTO 0.03 K/mm3 (0.00-0.10); IMMATURE GRAN PERCENT AUTO 0 % (0-1); LYMPHOCYTES ABSOLUTE AUTO 1.53 K/mm3 (0.84-5.20); LYMPHOCYTES PERCENT AUTO 20 % (21-46); MONOCYTES ABSOLUTE AUTO 0.52 K/mm3 (0.16-1.47); MONOCYTES PERCENT AUTO 7 % (4-13); Mean Corpuscular HGB 22.8 pg (26.0-34.0); Mean Corpuscular HGB Conc 30.4 g/dL (31.5-36.5); Mean Corpuscular Volume 75 fL (80-100); NEUTROPHILS ABSOLUTE AUTO 4.96 K/mm3 (1.96-9.15); NEUTROPHILS PERCENT AUTO 66 % (41-73); Platelet Count 414 K/mm3 (150-400); RDW Standard Deviation 58.1 fL (35.1-46.3); White Blood Cell Count 7.49 K/mm3 (4.00-11.30)
[2022-07-13 20:04] LABS: Albumin, Blood 2.3 g/dL (3.4-5.0); Albumin/Globulin Ratio 0.5 (0.8-1.8); Bilirubin, Total 0.6 mg/dL (0.1-1.0); Bun/Creatinine Ratio 21.3 (12.0-20.0); Calcium, Blood 7.9 mg/dL (8.5-10.1); Creatinine, Blood 2.58 mg/dL (0.60-1.20); Globulin, Blood 4.7 g/dL (2.2-4.0); Potassium, Blood 5.4 mmol/L (3.5-5.5)
[2022-07-14 12:13] LABS: BASOPHILS ABSOLUTE AUTO 0.09 K/mm3 (0.00-0.23); BASOPHILS PERCENT AUTO 2 % (0-2); EOSINOPHILS ABSOLUTE AUTO 0.12 K/mm3 (0.00-0.68); EOSINOPHILS PERCENT AUTO 2 % (0-6); Hematocrit 26.9 % (37.0-53.0); Hemoglobin 7.9 g/dL (13.5-17.5); IMMATURE GRAN ABSOLUTE AUTO 0.01 K/mm3 (0.00-0.10); IMMATURE GRAN PERCENT AUTO 0 % (0-1); LYMPHOCYTES ABSOLUTE AUTO 1.14 K/mm3 (0.84-5.20); LYMPHOCYTES PERCENT AUTO 21 % (21-46); MONOCYTES ABSOLUTE AUTO 0.26 K/mm3 (0.16-1.47); MONOCYTES PERCENT AUTO 5 % (4-13); Mean Corpuscular HGB 22.7 pg (26.0-34.0); Mean Corpuscular HGB Conc 29.4 g/dL (31.5-36.5); Mean Corpuscular Volume 77 fL (80-100); Mean Platelet Volume 9.7 fL (9.1-12.4); NEUTROPHILS ABSOLUTE AUTO 3.82 K/mm3 (1.96-9.15); NEUTROPHILS PERCENT AUTO 70 % (41-73); Platelet Count 395 K/mm3 (150-400); RDW Coefficient Variation 22.5 % (11.7-14.2); RDW Standard Deviation 61.1 fL (35.1-46.3); Red Blood Cell Count 3.48 M/mm3 (4.30-5.90); White Blood Cell Count 5.44 K/mm3 (4.00-11.30)
[2022-07-14 12:26] LABS: Albumin, Blood 2.5 g/dL (3.4-5.0); Albumin/Globulin Ratio 0.5 (0.8-1.8); Bilirubin, Total 0.5 mg/dL (0.1-1.0); Bun/Creatinine Ratio 20.4 (12.0-20.0); Calcium, Blood 8.1 mg/dL (8.5-10.1); Creatinine, Blood 2.6 mg/dL (0.60-1.20); Globulin, Blood 4.7 g/dL (2.2-4.0); Potassium, Blood 5.6 mmol/L (3.5-5.5); Total Protein, Blood 7.2 g/dL (6.4-8.2)
--- NOTE | 2022-07-14 18:27 | NUR ---
PT ARRIVED TO THE MEDICAL FLOOR FROM THE ER AROUND 1730 VIA GURNEY. PT WAS A/OX3, PLEASANT AND COOPERATIVE. PT IS BEDREST AT THIS TIME DUE TO LEFT AKA AND PARTIAL RIGHT FOOT AMPUTATION. PT S SKIN IS DRY AND FLAKY FROM PSORIASIS. PT IS PALE IN COLOR. VS TAKEN PT IS FRANKIE CARDIC AND HYPOTHERMIC TEMP 92.[address] LEGGETT WAS NOTIFIED AND WARMING BLANKET WAS ORDERED AND APPLIED. PT DENIES ANY PAIN. PT WAS ORIENTED TO THE ROOM CALL SYSTEM. PT IS EATING DINNER AT THIS TIME. CALL LIGHT IN REACH. WILL CONTINUE TO MONITOR AND ASSESS FOR CHANGES
[2022-07-14 18:58] LABS: Bun/Creatinine Ratio 21.5 (12.0-20.0); Creatinine, Blood 2.6 mg/dL (0.60-1.20); Potassium, Blood 5.3 mmol/L (3.5-5.5)
--- NOTE | 2022-07-14 20:15 | NUR ---
CALLED HOSPITALIST REQUESTED TELEMETRY MONITORING FOR THIS PT DUE TO REPORTED BRADYCARDIA AND HYPOTHERMIC STATUS. NEW ORDERS ENTERED. TELEMETRY MONITORING NOW IN PLACE. TELEMETRY: FRANKIE @ 47 BPM.
--- NOTE | 2022-07-14 22:06 | NUR ---
CALLED HOSPITALIST TELEMETRY INFORMED ME THAT PT'S HR WAS 37 BPM FOR A FEW BEATS, BUT THEN RETURNED TO FRANKIE @ 51 BPM. NO S/SX'S OBSERVED OR REPORTED. NO NEW ORDERS RECEIVED. I ALSO INFORMED THE HOSPITALIST THAT WE HELD THE SCHEDULED METOPROLOL DUE TO BRADYCARDIA.
[2022-07-15 03:36] LABS: Hematocrit 22.9 % (37.0-53.0); Hemoglobin 6.9 g/dL (13.5-17.5)
[2022-07-15 04:09] LABS: Vancomycin, Random 4.8 ug/mL
[2022-07-15 04:21] LABS: Albumin, Blood 2.1 g/dL (3.4-5.0); Anion Gap 8 mmol/L (6-16); Blood Urea Nitrogen 54 mg/dL (8-24); Bun/Creatinine Ratio 20.5 (12.0-20.0); CO2, Blood 19 mmol/L (21-32); Calcium, Blood 7.8 mg/dL (8.5-10.1); Chloride, Blood 116 mmol/L (98-108); Creatinine, Blood 2.63 mg/dL (0.60-1.20); Glomerular Filtration Rate 25 (60-); Glucose, Blood 199 mg/dL (70-99); Magnesium, Blood 2.4 mg/dL (1.6-2.4); Phosphorus, Blood 6.2 mg/dL (2.5-4.9); Potassium, Blood 4.9 mmol/L (3.5-5.5); Sodium, Blood 143 mmol/L (136-145)
--- NOTE | 2022-07-15 05:29 | NUR ---
CALLED CONSULT DAVID INFORMED HIM OF PT'S MORNING LABS. WILL CONTINUE TO MONITOR
--- NOTE | 2022-07-15 05:31 | NUR ---
SHIFT SUMMARY NOC PT A/O X 3. SOME CONFUSION AT TIMES. PT SCRATCHED OPEN SKIN ON R THIGH. WOUND WAS CLEANED AND COVERED WITH ABD DRESSING. PT HAS BEAR HUGGER IN PLACE TO KEEP BODY TEMPERATURE UP. BODY TEMP WAS LAST AT 96.1F. PT WAS SINUS FRANKIE AND EVENING METOPROLOL WAS HELD. PT LABS CAME BACK AND HGB WAS 6.9. DIRECTOR WORKFORCE MANAGEMENT AND PT PROVIDER NOTIFIED. PROVIDER SAID TO CONTINUE TO MONITOR STATUS. PT IS CURRENTLY RESTING WITH BED IN LOWEST POSITION, AND CALL LIGHT WITHIN REACH.
[2022-07-15] MEDS ORDERED: VITAMIN C125 MG PO (10:34)
[2022-07-15] MEDS ORDERED: SULTRIDS PO (10:35)
[2022-07-15] MEDS ORDERED: DOXY100 PO (10:38)
[2022-07-15] MEDS ORDERED: FURO20 PO (10:42)
[2022-07-15] MEDS ORDERED: POTA8 PO (10:43)
[2022-07-15] MEDS ORDERED: BENADRYL25 MG PO (10:46)
[2022-07-15] MEDS ORDERED: BISA10S PR (10:47)
[2022-07-15] MEDS ORDERED: TRIA15CR3 TOP (10:50)
[2022-07-15] MEDS ORDERED: Fleet Enema132 ML PR (10:53)
[2022-07-15] MEDS ORDERED: DULCOLAX400 MG/5 M PO (10:57)
--- NOTE | 2022-07-15 14:52 | NUR ---
Upon receiving a referral for spiritual care, I visit patient. Pt immedaitely tells me about his many medical problems, the deaths of those closest to him and the complications that occurred due to his most recent amputation. Pt also speaks of his deep venkata and how he remains grounded and hopeful because of it. He shares how he finds meaning and gratitude in the midst of challenging circumstances. He is greatly encouraged by his own voice and story. I provided therapeutic listening, greif support, theological insights and prayer. Pt responds well and shows signs of an elevated outlook and increased peace. I will continue to remain available to pt and family.
--- NOTE | 2022-07-15 15:37 | NUR ---
CONTACTED DR. HERNANDEZ ABOUT 24 HOUR URINE CONCERNING THE FACT THAT THE PT IS INCONTINENT. NURSING TRIED TO APPLY A CONDOM CATHETER AND IT WAS UNSUCCESSFUL. DR. HERNANDEZ STATED "COLLECT WHATEVER YOU CAN".
--- NOTE | 2022-07-15 17:49 | NUR ---
SHIFT SUMMARY PT HAS BEEN PLEASANT AND COOPERATIVE THIS SHIFT, NO C/O P/N/V. WE ARE STILL AWAITING BLOOD FOR HIS TRANSFUSION, BLOOD BANK CALLED AND SAID THE BLOOD IS ARRIVING FROM [place], [place] AND COULD TAKE SOME TIME TO GET TO [facility]. HE HAS BEEN MADE AWARE, ALONG WITH THE PROVIDER. HIS TEMPERATURE HAS REMAINED LOW AND HE REMAINS UNDER THE BEAR HUGGER. WILL REPORT TO THE ONCOMING NURSE.
--- NOTE | 2022-07-16 04:45 | NUR ---
SHIFT SUMMARY ADMITTED FOR NATHAN. FULL CODE. 1 UNIT OF PRBC'S GIVEN THIS SHIFT. TOLERATED WELL. TELEMETRY: FRANKIE @ 52 BPM, 2.3 SECOND PAUSE REPORTED BY TELEMETRY (NO S/SX). POWERGLIDE IN RUE. RENAL CONSULT IS DR. HERNANDEZ. BEAR HUGGER WARMING DEVICE IN PLACE FOR HYPOTHERMIC TEMPS. HE NEEDS AN ACHS CBG ORDER, WILL PASS ON TO DAY RN. BICARB INFUSING @ 50 ML/HR. LOOSE BM'S NOTED. HE IS INCONTINENT. HE HAS PSORIASIS. HE DOES SCRATCH HIMSELF UNTIL HE BLEEDS, CREAM APPLIED ORDERED. HE IS A&O X2-3, FORGETFUL. METOPROLOL HELD THIS SHIFT DUE TO BRADYCARDIA. BUMEX IS SCHEDULED. HE IS ON PLAVIX.
[2022-07-16 05:17] LABS: Hematocrit 25.7 % (37.0-53.0); Hemoglobin 7.9 g/dL (13.5-17.5)
[2022-07-16 05:35] LABS: Anion Gap 6 mmol/L (6-16); Blood Urea Nitrogen 48 mg/dL (8-24); Bun/Creatinine Ratio 19.4 (12.0-20.0); CO2, Blood 24 mmol/L (21-32); Calcium, Blood 7.5 mg/dL (8.5-10.1); Chloride, Blood 114 mmol/L (98-108); Creatinine, Blood 2.47 mg/dL (0.60-1.20); Glomerular Filtration Rate 27 (60-); Glucose, Blood 189 mg/dL (70-99); Magnesium, Blood 1.8 mg/dL (1.6-2.4); Phosphorus, Blood 4.9 mg/dL (2.5-4.9); Potassium, Blood 4.2 mmol/L (3.5-5.5); Sodium, Blood 144 mmol/L (136-145)
--- NOTE | 2022-07-16 14:39 | NUR ---
1320 telemarketing sales representative called. states 2.52 sec pause. pt a/o resting, asympotomatic. rate 50-55. called dr. pineda. spoke to dr robles. updated. no new ordres.
--- NOTE | 2022-07-16 18:10 | NUR ---
PT PLEASANT TODAY. SKIN STILL QUITE SCALEY. BP SOME SOFT THIS JAMMIE. DISCUSSED METOPROLOL AND H/R WITH DR FINNEY THIS AM AND THIS JAMMIE. PT GOT BATH TODAY. PT DOES HAVE SOME PICKING AT ARMS AND LIPS. LIGHT BLEEDING FROM PICKING. ADVISED TO RESIST. LIP GLOSS GIVEN. NO NEW CONCERNS NOTED. BED IN LOW POSITION, CALL LITE IN REACH, CALLS APROP
--- NOTE | 2022-07-16 23:25 | NUR ---
24HR URINE ALERTED DR HERNANDEZ REGARDING INABILITY TO COLLECT 24 HR URINE FROM [facility] DUE TO ANATOMICAL REASONS WELL PATIENTS SEVERE INCONTINENCE. STAFF UNSUCCESFUL AT COLLECTING ANY URINE FOR 24HR TEST YET. NO ORDERS FOR HAIDER.
--- NOTE | 2022-07-17 04:51 | NUR ---
SHIFT SUMMARY NO ACUTE CHANGES THIS SHIFT. VSS. METOPROLOL HELD DUE TO VS PARAMETERS IN EMAR. BEGINNING OF SHIFT, FULL BED BATH COMPLETED WITH ORAL CARE PRIOR TO OINTMENT BEING APPLIED OVER WHOLE BODY WHERE PSORIASIS PRESENTS ALONG WITH LIPS/MOUTH. UNABLE TO COLLECT 24 HR URINE, HERNANDEZ AWARE. POWERGLIDE DRESSING CHANGED. BEAR HUGGER REMAINS IN ROOM. TEMP STABLE. PT BEING REPOSITIONED BUY STAFF. BED ALARM ON.
[2022-07-17 06:37] LABS: Hematocrit 25.9 % (37.0-53.0); Hemoglobin 7.8 g/dL (13.5-17.5); Mean Corpuscular HGB Conc 30.1 g/dL (31.5-36.5); Mean Corpuscular Volume 76 fL (80-100); Mean Platelet Volume 9.7 fL (9.1-12.4); NRBC ABSOLUTE 0.02 K/mm3 (0.00-0.02); NRBC Auto 0.4 /100 WBC (0.0-0.2); Platelet Count 314 K/mm3 (150-400); RDW Coefficient Variation 22.5 % (11.7-14.2); RDW Standard Deviation 58.9 fL (35.1-46.3); Red Blood Cell Count 3.39 M/mm3 (4.30-5.90); White Blood Cell Count 5.29 K/mm3 (4.00-11.30)
[2022-07-17 07:46] LABS: Anion Gap 4 mmol/L (6-16); Blood Urea Nitrogen 40 mg/dL (8-24); Bun/Creatinine Ratio 19.6 (12.0-20.0); CO2, Blood 24 mmol/L (21-32); Calcium, Blood 7.4 mg/dL (8.5-10.1); Chloride, Blood 115 mmol/L (98-108); Creatinine, Blood 2.04 mg/dL (0.60-1.20); Glomerular Filtration Rate 34 (60-); Glucose, Blood 138 mg/dL (70-99); Magnesium, Blood 1.8 mg/dL (1.6-2.4); Phosphorus, Blood 3.9 mg/dL (2.5-4.9); Potassium, Blood 4.1 mmol/L (3.5-5.5); Sodium, Blood 143 mmol/L (136-145)
[2022-07-17 15:11] LABS: IMMUNOGLOBULIN A, QN, SERUM 518 mg/dL (61-437); IMMUNOGLOBULIN G, QN, SERUM 1430 mg/dL (603-1613); IMMUNOGLOBULIN M, QN, SERUM 48 mg/dL (15-143)
--- NOTE | 2022-07-17 17:29 | NUR ---
SHIFT SUMMARY: NO ACUTE EVENTS. NO EVENTS ON TELEMETRY, SR 60-70'S; HAS BEEN D/C'D. NO BM TODAY, INCONTINENT OF BLADDER, WEARING ATTENDS. CONSTANTLY PICKS AT HIS SKIN, HAS NUMEROUS SMALL OPEN, BLEEDING AREAS AND LOTS OF SCABS. PT STATES HIS SKIN LOOKS MUCH BETTER SINCE USING THE TRIAMCINOLONE CREAM. DENIED PAIN. TOLERATING PO INTAKE, GOOD APPETITE.
[2022-07-17 18:11] LABS: ANTIMYELOPEROXIDASE (MPO) ABS <0.2 units (0.0-0.9); ANTIPROTEINASE 3 (PR-3) ABS <0.2 units (0.0-0.9); ATYPICAL PANCA <1:20 titer (Neg:<1:20); CYTOPLASMIC (C-ANCA) <1:20 titer (Neg:<1:20); PERINUCLEAR (P-ANCA) <1:20 titer (Neg:<1:20)
[2022-07-18] MEDS ORDERED: METFORMIN HCL500 M3 PO (02:55)
[2022-07-18] MEDS ORDERED: BASAGLAR K100 UNIT/3 SC (02:56)
[2022-07-18] MEDS ORDERED: OZEMPIC1 MG/0.72 SC (02:56)
[2022-07-18] MEDS ORDERED: TRAM50 PO (02:57)
[2022-07-18 04:51] LABS: Hematocrit 24.6 % (37.0-53.0); Hemoglobin 7.6 g/dL (13.5-17.5)
--- NOTE | 2022-07-18 04:55 | NUR ---
NURSE PRACTICAL SUMMARY NO ACUTE CHANGES. PT A/OX3-4; NOTES SOME CONFUSION/DISORIENTATION--PT HELD UP HAND AND ASKED WHO'S KEYS--PT SOON REALIZED HE WASN'T HOLDING KEYS. PT PLEASANT AND COOPERATIVE. INCONT BOWEL/BLADDER. WILL NOT NOTIFY IF HE IS SOILED AND NEEDS CHANGED. PT HEAD TO TOE DRY/FLAKING AND CRACKED SKIN--APPLIED MEDICATED OINTMENT ALL OVER W/2100 MEDS. COMPLETE BED/BRIEF CHANGE AT THAT TIME. HS BLOOD SUGAR 183--NO COVERAGE INDICATED. PT T/DISCHARGE BACK T/UVNR 07/18/22; COVID SWAB COMPLETE AND SUBMITTED T/LAB--RESULTS PENDING. BED LOCKED/LOW AND ALARM SET. CALL LIGHT IN REACH.
[2022-07-18 05:07] LABS: Anion Gap 3 mmol/L (6-16); Blood Urea Nitrogen 34 mg/dL (8-24); Bun/Creatinine Ratio 19.9 (12.0-20.0); CO2, Blood 27 mmol/L (21-32); Calcium, Blood 7.4 mg/dL (8.5-10.1); Chloride, Blood 113 mmol/L (98-108); Creatinine, Blood 1.71 mg/dL (0.60-1.20); Glomerular Filtration Rate 42 (60-); Glucose, Blood 156 mg/dL (70-99); Magnesium, Blood 2.1 mg/dL (1.6-2.4); Phosphorus, Blood 2.8 mg/dL (2.5-4.9); Potassium, Blood 4.5 mmol/L (3.5-5.5); Sodium, Blood 143 mmol/L (136-145)
[2022-07-18 05:40] LABS: SARS-Cov-2 (COVID-19) PCR, MMC NEGATIVE (NEGATIVE)
[2022-07-18] MEDS ORDERED: ZYVOX IV (13:58)
[2022-07-18] MEDS ORDERED: PROBIOTIC1 EA13 PO (13:59)
[2022-07-18] MEDS ORDERED: BUME1 PO (14:32)
--- NOTE | 2022-07-18 15:36 | NUR ---
PATIENT DISCHARGED BACK TO [facility] VIA W/C. TELEPHONE REPORT GIVEN TO SOL MCDONALD AT FACILITY. POWERGLIDE IV LEFT IN FOR IV ABX. PT HAD BED BATH JUST PRIOR TO D/C. OFF UNIT AT 1530. NO PERSONAL BELONGINGS LEFT BEHIND IN ROOM.
== END 2022-07-18 15:25 | DRG 682 ==
LOC: ER 17:53 → ERHOLD 17:54 → MEDS 07-14 13:48 → ERHOLD 07-14 13:48 → MEDS 07-14 16:14
PROVIDERS: Emergency Medicine; Family Medicine; Hospitalist; Internal Medicine Nephrology; ADMIT Student in an Organized Health Care Education/Training Program
PROC: 30233N1 Transfusion of Nonautologous Red Blood Cells into Peripheral Vein, Percutaneous Approach (ICD-10-PCS; principal; 2022-07-15)
DX: N17.9 Acute kidney failure, unspecified (principal); G92.8 Other toxic encephalopathy; E87.0 Hyperosmolality and hypernatremia; E87.29 Other acidosis; R78.81 Bacteremia; Z20.822 Contact with and (suspected) exposure to COVID-19; E11.22 Type 2 diabetes mellitus with diabetic chronic kidney disease; E11.51 Type 2 diabetes mellitus with diabetic peripheral angiopathy without gangrene; E87.70 Fluid overload, unspecified; E87.5 Hyperkalemia; D63.1 Anemia in chronic kidney disease; E88.09 Other disorders of plasma-protein metabolism, not elsewhere classified; L40.9 Psoriasis, unspecified; N40.0 Benign prostatic hyperplasia without lower urinary tract symptoms; E86.0 Dehydration; B95.62 Methicillin resistant Staphylococcus aureus infection as the cause of diseases classified elsewhere; Z89.612 Acquired absence of left leg above knee; Z87.440 Personal history of urinary (tract) infections; Z98.52 Vasectomy status; Z79.02 Long term (current) use of antithrombotics/antiplatelets; Z79.2 Long term (current) use of antibiotics; Z79.4 Long term (current) use of insulin; Z79.899 Other long term (current) drug therapy
CPT/HCPCS: 36415; 36430; 71045; 74176; 80048; 80053; 80069; 80202; 82947; 83516; 83520; 83735; 85014; 85018; 85025; 85027; 86037; 86038; 86334; 86850; 86900; 86901; 86902; 86922; 87040; 93005; 93010; 93306; 96365; 96366; 96372-59; 96375; 99285-25; A9270; C1751; C9113; G0378; J0610; J0881; J1644; J1815; J2020; J2916; J3370; J7050; J7120; P9016; U0004

== ENCOUNTER 2022-10-07 02:33 | Day surgery (SDC) | payer MEDICARE, OTHER ==
[~2022-10-07 02:33] MED LIST changes: +BENADRYL25 MG PO; +BISA10S PR; +BUME1 PO; +DULCOLAX400 MG/5 M PO; +Fleet Enema132 ML PR; +PROBIOTIC1 EA13 PO; +TRAM50 PO; +TRIA15CR3 TOP; +VITAMIN C125 MG PO; +ZYVOX IV
== END 2022-10-07 23:12 | disposition home or self-care (01) ==
LOC: WOUND 02:33
DX: E11.622 Type 2 diabetes mellitus with other skin ulcer (principal); L97.312 Non-pressure chronic ulcer of right ankle with fat layer exposed; L89.890 Pressure ulcer of other site, unstageable; L89.152 Pressure ulcer of sacral region, stage 2; E11.621 Type 2 diabetes mellitus with foot ulcer; L97.512 Non-pressure chronic ulcer of other part of right foot with fat layer exposed; E11.42 Type 2 diabetes mellitus with diabetic polyneuropathy; I10 Essential (primary) hypertension; E11.51 Type 2 diabetes mellitus with diabetic peripheral angiopathy without gangrene; Z89.612 Acquired absence of left leg above knee
CPT/HCPCS: A9270; G0463

== ENCOUNTER 2022-10-14 02:20 | Day surgery (SDC) | payer MEDICARE, OTHER | END 2022-10-14 22:33 | disposition home or self-care (01) | LOC: WOUND 02:20 | DX: L89.610 Pressure ulcer of right heel, unstageable (principal); L89.152 Pressure ulcer of sacral region, stage 2; E11.622 Type 2 diabetes mellitus with other skin ulcer; L97.812 Non-pressure chronic ulcer of other part of right lower leg with fat layer exposed; E11.621 Type 2 diabetes mellitus with foot ulcer; L97.512 Non-pressure chronic ulcer of other part of right foot with fat layer exposed; E11.42 Type 2 diabetes mellitus with diabetic polyneuropathy; E11.51 Type 2 diabetes mellitus with diabetic peripheral angiopathy without gangrene; I10 Essential (primary) hypertension; Z89.612 Acquired absence of left leg above knee | CPT/HCPCS: A9270; G0463 ==

== ENCOUNTER 2022-10-21 00:46 | Day surgery (SDC) | payer MEDICARE, OTHER | END 2022-10-21 22:57 | disposition home or self-care (01) | LOC: WOUND 00:46 | DX: L89.152 Pressure ulcer of sacral region, stage 2 (principal); L89.890 Pressure ulcer of other site, unstageable; E11.42 Type 2 diabetes mellitus with diabetic polyneuropathy; E11.51 Type 2 diabetes mellitus with diabetic peripheral angiopathy without gangrene; I10 Essential (primary) hypertension; Z89.612 Acquired absence of left leg above knee | CPT/HCPCS: A9270; G0463 ==

== ENCOUNTER 2022-10-28 03:42 | Day surgery (SDC) | payer MEDICARE, OTHER | END 2022-10-28 22:54 | disposition home or self-care (01) | LOC: WOUND 03:42 | DX: L89.610 Pressure ulcer of right heel, unstageable (principal); L89.516 Pressure-induced deep tissue damage of right ankle; E11.42 Type 2 diabetes mellitus with diabetic polyneuropathy; E11.51 Type 2 diabetes mellitus with diabetic peripheral angiopathy without gangrene; I10 Essential (primary) hypertension; Z89.612 Acquired absence of left leg above knee | CPT/HCPCS: G0463 ==

== ENCOUNTER → 2022-10-29 | Outpatient (CLI) | payer MEDICARE, OTHER ==
[~2022-10-29] MED LIST changes: +AMOX500 PO; +Acetaminophen650 M1 PO; +BASAGLAR K100 UNIT/1 SC; +LOSA50 PO; +SENN187 PO; +VISBIOME 112.51 EACH PO
[2022-10-29 06:53] LABS: Creatinine Urine 50.5 mg/dL (27.00-270.00); Microalbumin, Urine Quant. 78.5 mg/L (0.000-20.000); Protein, Urine Quantitative 60.3 mg/dL (0.0-11.9)
== END | disposition home or self-care (01) ==
LOC: LAB UVN 06:12 → EDSTATUS 15:44
PROVIDERS: Internal Medicine Nephrology
DX: N18.30 Chronic kidney disease, stage 3 unspecified (principal)
CPT/HCPCS: 81050; 82043; 82570; 84156

== ENCOUNTER 2022-11-04 02:27 | Day surgery (SDC) | payer MEDICARE, OTHER ==
[~2022-11-04 02:27] MED LIST changes: -AMOX500 PO; -Acetaminophen650 M1 PO; -BASAGLAR K100 UNIT/1 SC; -LOSA50 PO; -SENN187 PO; -VISBIOME 112.51 EACH PO
== END 2022-11-04 22:42 | disposition home or self-care (01) ==
LOC: WOUND 02:27
DX: L89.153 Pressure ulcer of sacral region, stage 3 (principal); L89.613 Pressure ulcer of right heel, stage 3; L89.513 Pressure ulcer of right ankle, stage 3; E11.42 Type 2 diabetes mellitus with diabetic polyneuropathy; E11.51 Type 2 diabetes mellitus with diabetic peripheral angiopathy without gangrene; Z89.612 Acquired absence of left leg above knee; I10 Essential (primary) hypertension
CPT/HCPCS: A9270; G0463

== ENCOUNTER 2022-11-09 14:18 | Inpatient (IN) | payer MEDICARE, OTHER ==
[~2022-11-09] VITALS: Ht 172.7 cm; Wt 80.6 kg
[2022-11-09 16:32] LABS: BASOPHILS ABSOLUTE AUTO 0.07 K/mm3 (0.00-0.23); BASOPHILS PERCENT AUTO 0 % (0-2); EOSINOPHILS ABSOLUTE AUTO 0.12 K/mm3 (0.00-0.68); EOSINOPHILS PERCENT AUTO 1 % (0-6); Hematocrit 29.3 % (37.0-53.0); Hemoglobin 9.7 g/dL (13.5-17.5); IMMATURE GRAN ABSOLUTE AUTO 0.12 K/mm3 (0.00-0.10); IMMATURE GRAN PERCENT AUTO 1 % (0-1); LYMPHOCYTES PERCENT AUTO 7 % (21-46); MONOCYTES ABSOLUTE AUTO 0.94 K/mm3 (0.16-1.47); MONOCYTES PERCENT AUTO 6 % (4-13); Mean Corpuscular HGB 26.8 pg (26.0-34.0); Mean Corpuscular HGB Conc 33.1 g/dL (31.5-36.5); Mean Corpuscular Volume 81 fL (80-100); Mean Platelet Volume 9.3 fL (9.1-12.4); NEUTROPHILS ABSOLUTE AUTO 14.18 K/mm3 (1.96-9.15); NEUTROPHILS PERCENT AUTO 85 % (41-73); Platelet Count 647 K/mm3 (150-400); RDW Standard Deviation 47.9 fL (35.1-46.3); Red Blood Cell Count 3.62 M/mm3 (4.30-5.90); White Blood Cell Count 16.63 K/mm3 (4.00-11.30)
[2022-11-09 16:33] LABS: Albumin, Blood 1.9 g/dL (3.4-5.0); Albumin/Globulin Ratio 0.3 (0.8-1.8); Bilirubin, Total 0.3 mg/dL (0.1-1.0); Bun/Creatinine Ratio 61.9 (12.0-20.0); Calcium, Blood 9.3 mg/dL (8.5-10.1); Creatinine, Blood 1.68 mg/dL (0.60-1.20); Globulin, Blood 7.2 g/dL (2.2-4.0); Total Protein, Blood 9.1 g/dL (6.4-8.2)
[2022-11-09 20:49] VITALS: BP 131/64
[2022-11-09] MEDS ORDERED: FERSU300 PO (21:21)
[2022-11-09] MEDS ORDERED: LOSA50 PO (21:23)
[2022-11-09] MEDS ORDERED: SENN187 PO ×2 (21:24→21:27)
[2022-11-09] MEDS ORDERED: Acetaminophen650 M1 PO (21:26)
--- NOTE | 2022-11-09 21:37 | NUR ---
ADMIT NOTE HANDOFF RECEIVED FROM SHEET ROLLER OPERATORHARRY HSIEH. PERSONAL POSSESSIONS WITH PT. PT ORIENTED TO UNIT. CALL BUTTON WITHIN REACH.
[2022-11-10 02:52] VITALS: BP 145/74
--- NOTE | 2022-11-10 04:25 | NUR ---
SHIFT SUMMARY ADMITTED FROM ER FOR WEAKNESS AND NATHAN ON CKD. FULL CODE. NS INFUSING @ 150 ML/HR. AC CBG'S, LOW SS. INCONTINENT. ON BEDREST DUE TO WEAKNESS. LEFT AKA. RIGHT TRANSMETATARSAL AMPUTATION. ULCER ON COCCYX. ULCERS ON RIGHT LEG/FOOT ARE SEEN OUTPT BY WOUND CARE. HE IS FROM [facility]. HE DOES NOT MEDICATE OR MONITOR HIS DM2 AN OUTPT, A1C WAS 12.3 ON ADMIT.
[2022-11-10 05:12] LABS: BASOPHILS ABSOLUTE AUTO 0.07 K/mm3 (0.00-0.23); BASOPHILS PERCENT AUTO 0 % (0-2); EOSINOPHILS ABSOLUTE AUTO 0.17 K/mm3 (0.00-0.68); EOSINOPHILS PERCENT AUTO 1 % (0-6); Hematocrit 27.4 % (37.0-53.0); Hemoglobin 8.9 g/dL (13.5-17.5); IMMATURE GRAN ABSOLUTE AUTO 0.11 K/mm3 (0.00-0.10); IMMATURE GRAN PERCENT AUTO 1 % (0-1); LYMPHOCYTES PERCENT AUTO 7 % (21-46); MONOCYTES ABSOLUTE AUTO 0.84 K/mm3 (0.16-1.47); MONOCYTES PERCENT AUTO 5 % (4-13); Mean Corpuscular HGB 26.5 pg (26.0-34.0); Mean Corpuscular HGB Conc 32.5 g/dL (31.5-36.5); Mean Corpuscular Volume 82 fL (80-100); Mean Platelet Volume 9.1 fL (9.1-12.4); NEUTROPHILS ABSOLUTE AUTO 13.74 K/mm3 (1.96-9.15); NEUTROPHILS PERCENT AUTO 85 % (41-73); Platelet Count 603 K/mm3 (150-400); RDW Coefficient Variation 16.2 % (11.7-14.2); RDW Standard Deviation 48.2 fL (35.1-46.3); Red Blood Cell Count 3.36 M/mm3 (4.30-5.90); White Blood Cell Count 16.13 K/mm3 (4.00-11.30)
[2022-11-10 06:07] LABS: Magnesium, Blood 1.7 mg/dL (1.6-2.4)
[2022-11-10 06:12] LABS: Albumin, Blood 1.6 g/dL (3.4-5.0); Albumin/Globulin Ratio 0.2 (0.8-1.8); Bilirubin, Total 0.5 mg/dL (0.1-1.0); Bun/Creatinine Ratio 64.7 (12.0-20.0); Calcium, Blood 8.9 mg/dL (8.5-10.1); Creatinine, Blood 1.36 mg/dL (0.60-1.20); Globulin, Blood 6.4 g/dL (2.2-4.0); Potassium, Blood 3.9 mmol/L (3.5-5.5)
[2022-11-10 07:42] VITALS: BP 126/67
[2022-11-10 15:41] VITALS: BP 115/62
--- NOTE | 2022-11-10 16:54 | NUR ---
SHIFT SUMMARY PT AOX4 AND ON BEDREST. HE IS A VERY PLEASANT AND COOPERATIVE MAN. PROVIDER ORDERED A UA AND ATTEMPTED TO STRAIGHT CATH THE PT THREE TIMES. TWICE BY HIS NURSE AND ONCE BY THE CHARGE, ALL USING DIFFERENT SIZE CATHETERS. THIS WAS NO SUCCESSFUL SO PUT ON A CONDOM CATH TO COLLECT THE SAMPLE. THERE HAS NO BEEN ENOUGH URINE TO COLLECT THE SAMPLE YET. THE PT IS TOLERATING IT WELL. HE DID C/O PAIN AND WAS MEDICATED PER THE EMAR. ALL WOUNDS WERE REDRESSED AND ARE CDI. HE WAS ALSO CONSULTED FOR HIS R LEG AND ANOTHER PROVIDER IS TO FOLLOW UP FOR POSSIBLE BKA. PICTURES ARE IN THE CHART. PT RECEIVED HIS FIRST DOSE OF INSULIN THIS AM AND HE TOLERATED IT WELL. HE HAS NOT HAD MUCH OF AN APPETITE REGARDLESS OF BEING ENCOURAGED TO EAT. CALL LIGHT IS WITHIN REACH WITH THE BED IN THE LOWEST POSITION. WILL REPORT TO ONCOMING NURSE.
--- NOTE | 2022-11-10 18:05 | NUR ---
LAB NOTIFICATION: NOTIFIED BY LAB OF A +BLOOD CULTURE FOR GRAM + COCCI IN CHAINS. PROVIDER NOTIFIED AND SAID ABX ARE ALREADY ORDERED.
[2022-11-10 20:00] LABS: Source, Urine Straight Cath
[2022-11-10 20:08] LABS: Appearance, Urine Hazy (Clear); Bilirubin, Urine Neg (Neg); Blood, Urine 5+ (Neg); Color, Urine Yellow (P-Yellow); Glucose Qualitative, Urine 2+ (Neg); Ketones, Urine 1+ (Neg); Leukocyte Esterase, Urine 3+ (Neg); Nitrite, Urine Neg (Neg); Protein, Urine 2+ (Neg); Urobilinogen, Urine NORM (Normal)
[2022-11-10 20:53] LABS: Red Blood Cells, Urine 25-50 /hpf (0-2); White Blood Cells, Urine 50-100 /hpf (0-5)
[2022-11-10 20:56] LABS: Squamous Epithelial Cells Rare /hpf (Few)
[2022-11-10 20:58] LABS: Bacteria Mod /hpf
--- NOTE | 2022-11-10 22:59 | NUR ---
11/10/22 2259 Luna Vargas PT ON SCHEDULED ANTIBIOTICS
[2022-11-10 23:20] VITALS: BP 110/57
[2022-11-10 23:25] VITALS: BP 105/55
[2022-11-10 23:35] VITALS: BP 102/52
[2022-11-11] VITALS (18 sets, daily range): BP systolic 95–127; BP diastolic 47–61
[2022-11-11 05:04] LABS: BASOPHILS ABSOLUTE AUTO 0.08 K/mm3 (0.00-0.23); BASOPHILS PERCENT AUTO 1 % (0-2); EOSINOPHILS ABSOLUTE AUTO 0.18 K/mm3 (0.00-0.68); EOSINOPHILS PERCENT AUTO 1 % (0-6); Hemoglobin 8.2 g/dL (13.5-17.5); IMMATURE GRAN ABSOLUTE AUTO 0.09 K/mm3 (0.00-0.10); IMMATURE GRAN PERCENT AUTO 1 % (0-1); LYMPHOCYTES ABSOLUTE AUTO 1.23 K/mm3 (0.84-5.20); LYMPHOCYTES PERCENT AUTO 8 % (21-46); MONOCYTES ABSOLUTE AUTO 0.89 K/mm3 (0.16-1.47); MONOCYTES PERCENT AUTO 6 % (4-13); Mean Corpuscular HGB Conc 31.5 g/dL (31.5-36.5); Mean Corpuscular Volume 83 fL (80-100); Mean Platelet Volume 9.1 fL (9.1-12.4); NEUTROPHILS ABSOLUTE AUTO 12.09 K/mm3 (1.96-9.15); NEUTROPHILS PERCENT AUTO 83 % (41-73); Platelet Count 568 K/mm3 (150-400); RDW Coefficient Variation 16.3 % (11.7-14.2); RDW Standard Deviation 48.8 fL (35.1-46.3); Red Blood Cell Count 3.15 M/mm3 (4.30-5.90); White Blood Cell Count 14.56 K/mm3 (4.00-11.30)
[2022-11-11 05:20] LABS: Bun/Creatinine Ratio 60.6 (12.0-20.0); Calcium, Blood 8.6 mg/dL (8.5-10.1); Creatinine, Blood 0.99 mg/dL (0.60-1.20); Potassium, Blood 4.1 mmol/L (3.5-5.5)
[2022-11-11 11:35] LABS: Vancomycin, Trough 15.5 ug/mL (5.0-10.0)
--- NOTE | 2022-11-11 14:30 | NUR ---
History, Chart, Medications and Allergies reviewed before start of procedure. PT W BIBASILAR CRACKLES, O2 SATS >92% ON RM AIR. ACS NOTIFIED. BROTHER IN LAW CALLED FOR UPDATE PER PT REQUEST.
--- NOTE | 2022-11-11 14:59 | NUR ---
PT ASSISTED TO VOID IN URINAL BUT WAS UNABLE TO DO SO SO PT WAS BLADDER SCANNED SHOWING >400ML URINE IN HIS BLADDER. PROVIDER NOTIFIED.
--- NOTE | 2022-11-11 15:48 | NUR ---
11/11/22 1548 Reanna Berg NO PREOP ANTIBIOTICS ORDERED PER PATIENT IS ON SCHEDULED VANCO AND FLAGYL.
--- NOTE | 2022-11-11 17:40 | NUR ---
SHIFT SUMMARY PT AXO, PLEASANT AND COOPERATIVE WITH CARE THOUGH FORGETFUL. PT DOWN TO DAY SURGERY FOR PROCEDURE AND IS STILL THERE AT THIS TIME. PO MEDICATIONS EXCEPT METOPROLOL HELD THIS AM FOR NPO/PROCEDURE PER DR VASQUEZ. PT DENIES PAIN, N/V AND SOB. DRESSING TO COCCYX CHANGED AT START OF SHIFT. OTHER DRESSINGS IN PLACE AND INTACT AT START OF SHIFT.
--- NOTE | 2022-11-11 18:46 | NUR ---
PT ARRIVED BACK TO ROOM FROM SURGERY WITH Krista ALVARADO. BEDSIDE REPORT FROM PACU NURSE. VITAL SIGNS AT 1838. PT AXO, DENIES PAIN. ATTENDS CHANGED AND PT REPOSITIONED. FLUIDS RUNNING PER EMAR. CALL TO DR VASQUEZ, DR HINOJOSA ANSWERED THE PHONE. NOTIFIED OF CBG AND DR HINOJOSA ORDERED THAT DINNER TIME DOSE OF INSULIN BE GIVEN FOR CBG OF 264. ADA DIET ORDER ALSO ORDERED. BED IN LOW POSITON, CALL LIGHT WITHIN REACH.
[2022-11-12] VITALS (9 sets, daily range): BP systolic 107–117; BP diastolic 51–61
[2022-11-12 05:00] LABS: BASOPHILS ABSOLUTE AUTO 0.03 K/mm3 (0.00-0.23); BASOPHILS PERCENT AUTO 0 % (0-2); EOSINOPHILS PERCENT AUTO 0 % (0-6); Hematocrit 21.9 % (37.0-53.0); Hemoglobin 6.7 g/dL (13.5-17.5); IMMATURE GRAN PERCENT AUTO 1 % (0-1); LYMPHOCYTES ABSOLUTE AUTO 0.66 K/mm3 (0.84-5.20); LYMPHOCYTES PERCENT AUTO 5 % (21-46); MONOCYTES ABSOLUTE AUTO 0.37 K/mm3 (0.16-1.47); MONOCYTES PERCENT AUTO 3 % (4-13); Mean Corpuscular HGB 26.8 pg (26.0-34.0); Mean Corpuscular HGB Conc 30.6 g/dL (31.5-36.5); Mean Platelet Volume 9.1 fL (9.1-12.4); NEUTROPHILS ABSOLUTE AUTO 11.59 K/mm3 (1.96-9.15); NEUTROPHILS PERCENT AUTO 91 % (41-73); Platelet Count 522 K/mm3 (150-400); RDW Coefficient Variation 16.3 % (11.7-14.2); RDW Standard Deviation 52.1 fL (35.1-46.3); White Blood Cell Count 12.75 K/mm3 (4.00-11.30)
--- NOTE | 2022-11-12 05:08 | NUR ---
R BKA YESTERDAY ON 11/11/22, DRESSING STILL CDI AT THIS TIME. PT DENIES SIGNIFICANT PAIN, WILL CONTINUE TO MONITOR. TRAMADOL 50 MG GIVEN X1 FOR PAIN. IV INFILTRATED, REPLACED LFA IV. BEDREST, VSS, AOX4, PLEASANT. TURNED Q2 DUE TO SACRAL PRESSURE ULCER. INCONTINENT OF URINE, NO BM.
[2022-11-12 06:10] LABS: Bun/Creatinine Ratio 45.1 (12.0-20.0); Creatinine, Blood 1.22 mg/dL (0.60-1.20); Potassium, Blood 4.5 mmol/L (3.5-5.5)
[2022-11-12 07:16] LABS: Mean Corpuscular Volume 88 fL (80-100)
--- NOTE | 2022-11-12 17:32 | NUR ---
SHIFT SUMMARY PT A&OX4 AND IN PLEASENT MOOD T/O SHIFT. PAIN MEDICATED PER EMAR. VSS. TOLERATING FINGER FOODS WELL. INCONT. BEDREST. DRESSING C/D/I. CONT. IV ABX. PT JOKING W/ STAFF ABOUT RUNNING DOWN MEDINA AFTER THEM, BLE AMP. FAMILY/FRIENDS IN TO SEE PT T/O VISITING HOURS.
[2022-11-12 18:44] LABS: Hematocrit 22.3 % (37.0-53.0); Hemoglobin 7.4 g/dL (13.5-17.5)
[2022-11-13 02:20] LABS: Vancomycin, Trough 23.7 ug/mL (5.0-10.0)
[2022-11-13 04:29] VITALS: BP 133/64
--- NOTE | 2022-11-13 06:39 | NUR ---
NO SIGNIFICANT CHANGES OVER NIGHT. AO, VSS, INCONTINENT OF URINE, NO BM. DRESSING SUPPLIES IN ROOM PER MD ORDER, AWAITING FIRST POST-OP DRESSING CHANGE, DRESSING CDI. Q2 TURNS. TOLERATING MEDS AND CARES ORDERED. VANCO TROUGH CRITICALLY HIGH LAST NIGHT SO 0200 DOSE HELD.
[2022-11-13 07:32] VITALS: BP 137/64
[2022-11-13 08:23] LABS: Hematocrit 23.2 % (37.0-53.0); Hemoglobin 7.4 g/dL (13.5-17.5)
[2022-11-13 08:45] LABS: Calcium, Blood 7.6 mg/dL (8.5-10.1); Creatinine, Blood 0.87 mg/dL (0.60-1.20); Potassium, Blood 3.9 mmol/L (3.5-5.5)
[2022-11-13 13:32] LABS: Vancomycin, Random 18.2 ug/mL
[2022-11-13 15:16] VITALS: BP 120/65
--- NOTE | 2022-11-13 18:46 | NUR ---
SHIFT SUMMARY PT A&OX4 AND IN PLEASENT MOOD T/O SHIFT. TOLERATING PO INTAKE, PT C/O "AMOUNT OF FOOD IS TOO MUCH HERE". PAIN MEDICATED PER EMAR. SURGEON IN TO DO INITIAL DRESSING CHANGE THIS SHIFT, THIS RN INSTRUCTED TO CHANGE DRESSING EVERY OTHER DAY OR NEEDED-H2O2 FOR CLEANING, ABD PAD AND 6X8 STUMP SOCK. VSS. GLUCOSE ELEVATED T/O SHIFT.
[2022-11-13 20:15] VITALS: BP 125/65
[2022-11-14 03:18] VITALS: BP 132/63
--- NOTE | 2022-11-14 05:18 | NUR ---
SHIFT SUMMARY; NO ACUTE CHANGES OVERNIGHT. THE PT HAS BEEN RESTING IN BED FOR THE ENTIRETY OF THE NIGHT. THE PT IS AXO X4 AND BED BOUND. THE PT IS INCONTINENT. THE PT DENIES ANY SOB, PAIN, CHEST PAIN/PRESSURE OR N/V. THE PTS STUMP SOCK ON HIS R BKA IS STILL IN PLACE. CURRENTLY THE PT IS SLEEPING IN BED WITH THE BED IN THE LOWEST POSITION AND THE CALL LIGHT AT BEDSIDE.
--- NOTE | 2022-11-14 06:16 | NUR ---
CHANGED PTS STUMP SOCK THE EDGE OF THE SOCK, OR THE MOST DISTAL END TO THE INCISION WAS DAMP. ABD PAD IS STILL CLEAN DRY AND INTACT UNDER NEW STUMP SOCK. PTS WOUND ON COCCYX IS OPEN AND UNSTAGEABLE. SLOUGH AND PURULENT DRAINAGE ARE PRESENT IN THE WOUND BED. UNCLEAR IF TUNNELING IS PRESENT. NEW MEPILEX PLACED ON COCCYX THIS AM.
[2022-11-14 07:19] VITALS: BP 134/69
[2022-11-14] MEDS ORDERED: VISBIOME 112.51 EACH PO (10:11)
[2022-11-14] MEDS ORDERED: AMOX500 PO (10:12)
[2022-11-14] MEDS ORDERED: BASAGLAR K100 UNIT/1 SC (10:12)
[2022-11-14] MEDS ORDERED: DOXY100 PO (10:13)
--- NOTE | 2022-11-14 13:34 | NUR ---
DISCHARGE SUMMARY PATIENT IS ALERT AND ORIENTED. PATIENT HAS NOT COMPLAINED OF NAUSEA, SOB OR VOMITTING. PATIENT HAS HAD NO ACUTE EVENTS THIS SHIFT. VITAL SIGNS REVIEWED. PATIENT IS BEING DISCHARGED BACK TO [facility].
== END 2022-11-14 13:28 | disposition home or self-care (01) | DRG 853 ==
LOC: ER 14:18 → MEDS 14:19
PROVIDERS: Emergency Medicine; Internal Medicine; Nurse Practitioner Acute Care; Orthopaedic Surgery; Pharmacist; ADMIT Internal Medicine
PROC: 3E03329 Introduction of Other Anti-infective into Peripheral Vein, Percutaneous Approach (ICD-10-PCS; 2022-11-09)
PROC: 0JBQ0ZZ Excision of Right Foot Subcutaneous Tissue and Fascia, Open Approach (ICD-10-PCS; 2022-11-10)
PROC: 0L9S0ZZ Drainage of Right Ankle Tendon, Open Approach (ICD-10-PCS; 2022-11-10)
PROC: 0Y6H0Z1 Detachment at Right Lower Leg, High, Open Approach (ICD-10-PCS; principal; 2022-11-11 14:00)
PROC: 30233N1 Transfusion of Nonautologous Red Blood Cells into Peripheral Vein, Percutaneous Approach (ICD-10-PCS; 2022-11-12)
DX: A41.81 Sepsis due to Enterococcus (principal); A48.0 Gas gangrene; G92.8 Other toxic encephalopathy; N17.9 Acute kidney failure, unspecified; F11.20 Opioid dependence, uncomplicated; M86.8X7 Other osteomyelitis, ankle and foot; E87.1 Hypo-osmolality and hyponatremia; E11.52 Type 2 diabetes mellitus with diabetic peripheral angiopathy with gangrene; N18.30 Chronic kidney disease, stage 3 unspecified; R65.20 Severe sepsis without septic shock; E11.22 Type 2 diabetes mellitus with diabetic chronic kidney disease; I12.9 Hypertensive chronic kidney disease with stage 1 through stage 4 chronic kidney disease, or unspecified chronic kidney disease; G89.29 Other chronic pain; E11.621 Type 2 diabetes mellitus with foot ulcer; L97.519 Non-pressure chronic ulcer of other part of right foot with unspecified severity; J43.9 Emphysema, unspecified; E86.0 Dehydration; N40.0 Benign prostatic hyperplasia without lower urinary tract symptoms; D63.1 Anemia in chronic kidney disease; E11.69 Type 2 diabetes mellitus with other specified complication; Z87.440 Personal history of urinary (tract) infections; Z86.14 Personal history of Methicillin resistant Staphylococcus aureus infection; Z89.512 Acquired absence of left leg below knee; Z98.52 Vasectomy status; Z79.82 Long term (current) use of aspirin; Z79.899 Other long term (current) drug therapy
CPT/HCPCS: 36415; 36430; 71045; 73600; 80048; 80053; 80202; 81001; 82947; 83036; 83735; 83880; 84145; 85014; 85018; 85025; 86850; 86900; 86901; 86902; 86922; 87040; 87070; 87077; 87147; 87186; 87205; 88307; 93308; 93321; 96361; 96365; 96366; 96367; 96375; 99285-25; A9270; C9113; G0378; J0295; J0690; J1100; J1644; J1815; J2250; J2370; J2405; J2704; J3010; J3370; J7030; J7050; J7120; P9016

== ENCOUNTER 2022-12-04 08:55 | Inpatient (IN) | payer MEDICARE, OTHER ==
[~2022-12-04] VITALS: Ht 182.9 cm; Wt 81.7 kg
[2022-12-04] VITALS (15 sets, daily range): BP systolic 77–154; BP diastolic 48–143
[~2022-12-04 08:55] MED LIST changes: +AMOX500 PO; +Acetaminophen650 M1 PO; +BASAGLAR K100 UNIT/1 SC; +LOSA50 PO; +SENN187 PO; +VISBIOME 112.51 EACH PO
[2022-12-04 09:26] LABS: BASOPHILS ABSOLUTE AUTO 0.04 K/mm3 (0.00-0.23); BASOPHILS PERCENT AUTO 0 % (0-2); EOSINOPHILS ABSOLUTE AUTO 0.05 K/mm3 (0.00-0.68); EOSINOPHILS PERCENT AUTO 0 % (0-6); Hematocrit 26.1 % (37.0-53.0); Hemoglobin 8.2 g/dL (13.5-17.5); IMMATURE GRAN ABSOLUTE AUTO 0.24 K/mm3 (0.00-0.10); IMMATURE GRAN PERCENT AUTO 1 % (0-1); LYMPHOCYTES ABSOLUTE AUTO 0.96 K/mm3 (0.84-5.20); LYMPHOCYTES PERCENT AUTO 5 % (21-46); MONOCYTES ABSOLUTE AUTO 0.85 K/mm3 (0.16-1.47); MONOCYTES PERCENT AUTO 5 % (4-13); Mean Corpuscular HGB 26.5 pg (26.0-34.0); Mean Corpuscular HGB Conc 31.4 g/dL (31.5-36.5); Mean Corpuscular Volume 84 fL (80-100); Mean Platelet Volume 9.7 fL (9.1-12.4); NEUTROPHILS ABSOLUTE AUTO 15.96 K/mm3 (1.96-9.15); NEUTROPHILS PERCENT AUTO 88 % (41-73); Platelet Count 423 K/mm3 (150-400); RDW Standard Deviation 51.8 fL (35.1-46.3)
[2022-12-04 09:57] LABS: Albumin, Blood 1.5 g/dL (3.4-5.0); Albumin/Globulin Ratio 0.2 (0.8-1.8); Bilirubin, Total 0.6 mg/dL (0.1-1.0); Creatinine, Blood 4.71 mg/dL (0.60-1.20); Potassium, Blood 6.1 mmol/L (3.5-5.5); Total Protein, Blood 7.5 g/dL (6.4-8.2)
[2022-12-04] MEDS ORDERED: OXYC5 PO (11:07)
[2022-12-04 12:07] LABS: Source, Urine Clean Catch
[2022-12-04 12:12] LABS: Appearance, Urine Hazy (Clear); Bilirubin, Urine Neg (Neg); Blood, Urine 5+ (Neg); Glucose Qualitative, Urine Neg (Neg); Ketones, Urine 1+ (Neg); Leukocyte Esterase, Urine 3+ (Neg); Nitrite, Urine Neg (Neg); Protein, Urine 3+ (Neg); Specific Gravity, Urine 1.015 (1.003-1.022); Urobilinogen, Urine NORM (Normal)
[2022-12-04 12:14] LABS: Squamous Epithelial Cells Mod /hpf (Few); White Blood Cells, Urine 50-100 /hpf (0-5)
[2022-12-04 12:15] LABS: Bacteria Many /hpf; Mucus Mod (0-Heavy)
[2022-12-04 12:16] LABS: Color, Urine Yellow (P-Yellow)
--- NOTE | 2022-12-04 15:19 | NUR ---
ADMIT/TRANSFER PT ARRIVED TO ICU ROOM 9 AT 1228 VIA ER BED. PT IS AROUSABLE TO VERBAL STIMULI, BUT DROWSEY. PT ATTEMPTS TO ANSWER SOME QUESTIONS, BUT SPEECH IS SLOW AND PT ONLY SPEAKS A FEW WORDS. PT GRIMMACES TO NOXIOUS STIMULI. PT ARRIVED WITH LEVOPHED INFUSING TO PERIPHERAL IV. PICC PLACED TO CHITRA. LEVOPHED INFUSING AT 4 MCG/MIN AT THIS TIME. DR DON AT BEDSIDE TO EVALUATE SACRAL WOUND. DISCUSSED PLAN OF CARE FOR PT AND DR DON TO CONTACT DR DAVIS ABOUT TRANSFERING PT DUE TO CONCERNS OF MULTIPLE FAILED HAIDER CATHETER ATTEMPTS IN THE ER. PT WITH ATTENDS IN PLACE. PT WITH SCANT INCONINENT URINE OUTPUT NOTED. RECENT RIGHT BKA C/D/I, WITH SUTURES AND OUTER SOCK IN PLACE. PT DAUGHTER UPDATED TO PT CONDITION AND PLAN TO TRANSFER PT FOR UROLOGY SERVICES. WILL CONTINUE TO MONITOR.
--- NOTE | 2022-12-04 15:37 | NUR ---
pt in ER critically ill started on pressor. Called [facility] to review care. Called tp daughter to update her on his staus and severity. Advised her physicians will be calling to ask her for plan of care. pt daughter very upset and is going to drive down from [place]. Updated admitting physician on conversation. He called her and reviewed the diagnostics and his prognosis. At this time she wants treatment. plan is to send to [facility] for care. She understands that might not be a good plan and will then transition to comfort and hospice. She could not in good concious not give him one more opportunity. Will follow up.
[2022-12-04 16:12] LABS: Bun/Creatinine Ratio 16.9 (12.0-20.0); Calcium, Blood 7.6 mg/dL (8.5-10.1); Creatinine, Blood 5.08 mg/dL (0.60-1.20); Potassium, Blood 5.3 mmol/L (3.5-5.5)
--- NOTE | 2022-12-04 16:54 | NUR ---
TRANSFER OF CARE PT CARE TRANSFERED TO EMS. BEDSIDE REPORT GIVEN. ALL QUESTIONS ANSWERED. NO PT BELONGINGS PRESENT. REPORT CALLED TO JANIE MCDONALD AT [facility]. PT OLEFT UNIT AT 1650.
== END 2022-12-04 16:54 | disposition short-term general hospital (02) | DRG 871 ==
LOC: ER 08:55 → ICUW 11:15 → PCU 11:15 → ICUW 11:53
PROVIDERS: Physician Assistant; ADMIT Internal Medicine
PROC: 3E03329 Introduction of Other Anti-infective into Peripheral Vein, Percutaneous Approach (ICD-10-PCS; principal; 2022-12-04)
PROC: 3E033XZ Introduction of Vasopressor into Peripheral Vein, Percutaneous Approach (ICD-10-PCS; 2022-12-04)
PROC: 05HY33Z Insertion of Infusion Device into Upper Vein, Percutaneous Approach (ICD-10-PCS; 2022-12-04)
DX: A41.81 Sepsis due to Enterococcus (principal); G92.8 Other toxic encephalopathy; L89.154 Pressure ulcer of sacral region, stage 4; R65.21 Severe sepsis with septic shock; E87.1 Hypo-osmolality and hyponatremia; E87.20 Acidosis, unspecified; N17.9 Acute kidney failure, unspecified; F11.20 Opioid dependence, uncomplicated; L97.819 Non-pressure chronic ulcer of other part of right lower leg with unspecified severity; E11.622 Type 2 diabetes mellitus with other skin ulcer; A41.51 Sepsis due to Escherichia coli [E. coli]; E87.5 Hyperkalemia; E86.0 Dehydration; N48.22 Cellulitis of corpus cavernosum and penis; G89.29 Other chronic pain; L40.9 Psoriasis, unspecified; E11.22 Type 2 diabetes mellitus with diabetic chronic kidney disease; N40.0 Benign prostatic hyperplasia without lower urinary tract symptoms; I12.9 Hypertensive chronic kidney disease with stage 1 through stage 4 chronic kidney disease, or unspecified chronic kidney disease; N18.9 Chronic kidney disease, unspecified; D63.1 Anemia in chronic kidney disease; E11.51 Type 2 diabetes mellitus with diabetic peripheral angiopathy without gangrene; B95.61 Methicillin susceptible Staphylococcus aureus infection as the cause of diseases classified elsewhere; B95.1 Streptococcus, group B, as the cause of diseases classified elsewhere; Z89.612 Acquired absence of left leg above knee; Z89.511 Acquired absence of right leg below knee; Z98.890 Other specified postprocedural states; Z98.52 Vasectomy status; Z87.440 Personal history of urinary (tract) infections; Z87.39 Personal history of other diseases of the musculoskeletal system and connective tissue; Z86.14 Personal history of Methicillin resistant Staphylococcus aureus infection; Z79.4 Long term (current) use of insulin; Z79.82 Long term (current) use of aspirin; Z79.02 Long term (current) use of antithrombotics/antiplatelets; Z79.899 Other long term (current) drug therapy; Z79.2 Long term (current) use of antibiotics; Z89.422 Acquired absence of other left toe(s); Z89.421 Acquired absence of other right toe(s)
CPT/HCPCS: 36569; 51798; 71045; 74176; 80048; 80053; 81001; 82947; 83605; 84484; 85025; 87040; 87077; 87086; 87186; 93005; 93010; 96361; 96365; 96375; 99285-25; C1751; J0696; J1815; J2543; J3370; J7030; J7050; J7060